=== PATIENT | male | born 1960 | race Caucasian/White ===

== ENCOUNTER 2016-06-21 08:30 | Inpatient (IN) | payer SELFPAY ==
[2016-06-21] VITALS (9 sets, daily range): BP systolic 107–141; BP diastolic 59–87; Ht 190.5 cm; Wt 81.8 kg
[~2016-06-21] VITALS: Ht 190.5 cm; Wt 81.8 kg
[~2016-06-21 08:30] MED LIST: BAYER CHEWABLE81 MG PO; BENZACLIN GEL 335 GM TP; CARBATROL 200200 MG PO; CELEXA40 MG PO; CENTRUM COMPLE1 EACH PO; COREG6.25 MG PO; EFFEXOR75 MG PO; HYDROCODONE-APA1 TAB PO; ISOSORBIDE MONO60 M1 PO; LASIX20 MG PO; LIPITOR80 MG PO; LOTENSIN5 MG; OLEPTRO ER150 MG PO; PEPCID20 MG PO; PLAVIX75 MG PO; RANEXA500 MG PO
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
--- NOTE | 2016-06-21 09:35 | NUR ---
TAKEN TO OR AT THIS TIME VIA BED. WILL MONITOR PT WHEN HE RETURNS TO THE FLOOR.
[2016-06-21 09:38] LABS: BASOPHILS 0.1 % (0.0-2.0); EOSINOPHILS 0.1 % (0-7); HEMATOCRIT 31.8 % (42.0-54.0); HEMOGLOBIN 10.7 g/dL (13.5-17.5); IMMATURE GRANULOCYTES 0.4 % (0-5); LYMPHOCYTES 9.7 % (15-50); MCH 30.5 pg (26.0-34.0); MCHC 33.6 g/dL (31.0-37.0); MCV 90.6 fL (80.0-100.0); MEAN PLATELET VOLUME 9.1 fL (7.4-10.4); MONOCYTES 12.3 % (2-11); NEUTROPHILS 77.4 % (40-80); PLATELET COUNT 179 10x3/uL (130-400); RBC 3.51 10x6/uL (4.20-6.10); RDW 14.1 % (11.5-14.5); WBC 14.2 10x3/uL (4.8-10.8)
[2016-06-21 09:59] LABS: CKMB 13.6 U/L (0.0-3.6); CREATINE KINASE 1575 UL (21-232); TROPONIN-I 0.036 ng/mL (0.000-0.060)
--- NOTE | 2016-06-21 10:24 | NUR ---
0930: PT SENT FAMILY HOME. SO NO FAMILY PRESENT
--- NOTE | 2016-06-21 11:30 | NUR ---
ANSARI CATHETER REMOVED IN PACU
--- NOTE | 2016-06-21 11:32 | NUR ---
REPORT RECEIVED FROM CLAUDIA MCINTOSH IN RECOVERY.
--- NOTE | 2016-06-21 11:35 | NUR ---
RECEIVED BACK TO ROOM 2240 AT THIS TIME. PT IS LETHARGIC, BUT RESPONDS TO VERBAL STIMULI. OXYGEN ON 2L VIA NC. VITAL SIGNS STABLE AND INITIATED PER POST PROCEDURE PROTOCOL. CALL LIGHT IN REACH, WILL CONTINUE TO MONITOR PT. IV TO LEFT HAND WITH NS INFUSING AT 100 ML/HR.
[2016-06-21] MEDS ORDERED: PROTONIX40 MG PO (12:33)
[2016-06-21] MEDS ORDERED: SINGULAIR10 MG PO (12:34)
[2016-06-21] MEDS ORDERED: FLUTICASONE PRO16 GM NASAL (12:34)
[2016-06-21] MEDS ORDERED: SPIRIVA RESPIMAT4 G1 INH (12:34)
[2016-06-21] MEDS ORDERED: TEGRETOL200 MG PO (12:35)
[2016-06-21] MEDS ORDERED: ATARAX 25 MG TA25 MG PO (12:36)
[2016-06-21] MEDS ORDERED: EFFEXOR75 MG PO (12:37)
[2016-06-21] MEDS ORDERED: TRAZODONE HCL150 MG PO (12:38)
[2016-06-21] MEDS ORDERED: ZANTAC150 MG PO (12:39)
--- NOTE | 2016-06-21 13:00 | NUR ---
AWAKENS UPON VERBAL STIMULI. ALERT AND ORIENTED. DRESSING TO RIGHT SCAPULA C/D/I. PROVIDED PT WITH COLA IN A CUP OF ICE. DENIES NEEDS AT THIS TIME. VITAL SIGNS REMAIN STABLE. WILL CONTINUE WITH PLAN OF CARE.
--- NOTE | 2016-06-21 13:45 | NUR ---
DR MARCELO IN SURGERY. SPOKE WITH ACCESS CLINICIAN NURSE AND TOLD HER TO LET HIM KNOW THAT MEDICATION LIST THAT HE PREVIOUSLY CONTINUED WAS NOT ACCURATE. NEW MEDICATION LIST IN COMPUTER FOR REVIEW.
[2016-06-21 15:31] LABS: CKMB 13.3 U/L (0.0-3.6); TROPONIN-I 0.033 ng/mL (0.000-0.060)
[2016-06-21 15:35] LABS: CREATINE KINASE 1520 UL (21-232)
--- NOTE | 2016-06-21 15:47 | NUR ---
Patient Name: PIO PARKER Admission Status: Elective Accout number: [id number] Admission Date: 06-21-2016 : 1960 Admission Diagnosis: Attending: PAULA Current LOS: 1 Anticipated DC Date: 06-25-2016 Planned Disposition: Home Primary Insurance: [place] [employer]IONS [place] Discharge Planning Comments: CM MET WITH PATIENT REGARDING D/C NEEDS AND PLANS. PATIENT STATED HE LIVES WITH HIS MOTHER KONRAD. PATIENT STATED THERE ARE NO STEPS OR STAIRS AT HIS HOME. PATIENT STATED HE WOULD NEED A CAB HOME. PATIENTS PCP IS DR. BLAS AND PHARMACY IS [facility]. PATIENT STATED HE HAS NOT HAD HOME HEALTH BEFORE AND DOES NOT WANT IT. CM WILL CONTINUE TO FOLLOW PATIENT WITH D/C NEEDS AND PLANS. PCP [facility] [place] [place] [phone] Staff [employer] Officer: Sharon Godinez Is the patient Alert and Oriented? Yes 0 * How many steps to enter\exit or inside your home? 0 0 * PCP DR. BLAS 0 * Pharmacy [facility] 0 * Preadmission Environment Home with Family 0 * ADLs Independent 0 * Equipment None 0 * List name and contact numbers for known caregivers / representatives who currently or will assist patient after discharge: [place] [place] [phone] 0 * Community resources currently utilized None 0 * Additional services required to return to the preadmission environment? Yes 0 * Can the patient safely return to the preadmission environment? Yes 0 * Has this patient been hospitalized within the prior 30 days at any hospital? No 0 Grand Total: 0
--- NOTE | 2016-06-21 17:40 | NUR ---
GIVEN PRN PERCOCET-10 AT THIS TIME FOR PAIN 02/09. DRESSING TO RIGHT SHOULDER C/D/I. PT IS ALERT AND ORIENTED AND DENIES THE NEED TO VOID AT THIS TIME. PROVIED WITH URINAL AND FRESH COLA. CALL LIGHT IN REACH, WILL CONTINUE WITH PLAN OF CARE.
--- NOTE | 2016-06-21 19:54 | NUR ---
PT IS A&OX4 SITTING UP IN BED WATCHING TV. PT REQUESTS PAIN MEDICATION "IF IT IS TIME." NURSE NOTIFIED. BED LOW. CL IN REACH.
[2016-06-21 21:40] LABS: CKMB 8.9 U/L (0.0-3.6); TROPONIN-I 0.021 ng/mL (0.000-0.060)
[2016-06-21 21:45] LABS: CREATINE KINASE 1411 UL (21-232)
[2016-06-22 00:36] VITALS: BP 125/48
[2016-06-22 04:34] VITALS: BP 114/66
[2016-06-22] MEDS ORDERED: PLAVIX75 MG PO (07:34)
--- NOTE | 2016-06-22 07:45 | NUR ---
PRN PERCOCET-10 ADMINISTERED FOR PAIN AT THIS TIME. PAIN 9/10 IN THE RIGHT SHOULDER.
[2016-06-22] MEDS ORDERED: PERCOCET 10/3251 TA1 PO (09:16)
[2016-06-22] MEDS ORDERED: CLEOCIN HCL150 MG PO (09:17)
[2016-06-22 09:30] VITALS: BP 129/51
--- NOTE | 2016-06-22 10:17 | NUR ---
SCHEDULED MEDICATIONS ADMINISTERED AT THIS TIME. DR MARCELO IN THE ROOM. EXISTING DRESSING REMOVED AT THIS TIME BY HIM AND NEW DRESSING APPLIED. PT WILL BE DISCHARGED HOME. SPOKE WITH PT'S SON AND HE SAID HE COULD PICK HIM UP LATER THIS AFTERNOON. EXPLAINED THIS TO PT AND HE VERBALIZED UNDERSTANDING.
--- NOTE | 2016-06-22 11:28 | NUR ---
SCHEDULED TORADOL ADMINISTERED AT THIS TIME. PROVIDED PT WITH SCRUBS FOR DISCHARGE. DENIES FURTHER NEEDS AT PRESENT TIME. WILL CONTINUE WITH PLAN OF CARE.
[2016-06-22 12:42] VITALS: BP 110/35
--- NOTE | 2016-06-22 14:20 | NUR ---
DRESSING TO LEFT BUTTOCK CHANGED AT THIS TIME. ASSISTED PT INTO SCRUB TOP AND BOTTOM WELL NON SKID SOCKS. TELEMETRY REMOVED AND RETURNED TO HEART MONITOR STATION. AWAITING PT'S SON'S ARRIVAL.
--- NOTE | 2016-06-22 15:06 | NUR ---
DISCHARGED HOME AT THIS TIME WITH SON VIA PRIVATE VEHICLE.
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
== END 2016-06-22 15:05 | disposition home or self-care (01) | DRG 517 ==
LOC: D.MS 08:30 → OBSVTIME 08:30 → D.MS 08:30
PROVIDERS: Internal Medicine Interventional Cardiology; ADMIT Surgery
PROC: 0PB50ZZ Excision of Right Scapula, Open Approach (ICD-10-PCS; principal; 2016-06-21 10:30)
DX: S42.101A Fracture of unspecified part of scapula, right shoulder, initial encounter for closed fracture (principal); S71.102A Unspecified open wound, left thigh, initial encounter; X95.9XXA Assault by unspecified firearm discharge, initial encounter; S02.2XXA Fracture of nasal bones, initial encounter for closed fracture; I25.10 Atherosclerotic heart disease of native coronary artery without angina pectoris; Z95.5 Presence of coronary angioplasty implant and graft; R07.89 Other chest pain; I10 Essential (primary) hypertension; F17.200 Nicotine dependence, unspecified, uncomplicated; E78.5 Hyperlipidemia, unspecified

== ENCOUNTER 2016-09-13 07:55 | Outpatient (CLI) | payer MEDICAID ==
[~2016-09-13] VITALS: Ht 190.5 cm; Wt 89.1 kg
--- NOTE | ~2016-09-13 | OP ---
PATIENT NAME: PIO PARKER MEDICAL RECORD: [id number] :60 LOCATION:D.CAT ADMISSION DATE: SURGEON: ADIN NUNN MD DATE OF OPERATION: 09/13/2016 PROCEDURES: 1. PTCA stent LAD. 2. Left heart catheterization. 3. Selective coronary angiography. 4. Left ventriculogram. PROCEDURE IN DETAIL: After informed consent was obtained and after detailed explanation of risks, benefits as well as alternative therapies, the patient elected to proceed with angiogram and angioplasty. The right femoral area was prepped and draped in normal sterile fashion. The right femoral artery was cannulated via modified Seldinger technique with a placement of 6-Palauan sheath. All catheters exchanged through this sheath. FINDINGS: The left ventriculogram was performed in the standard 30-degree RAMIREZ view reveals mild global hypokinesis throughout all segments. Overall ejection fraction 40%. SELECTIVE CORONARY ANGIOGRAPHY: 1. Left main showed no significant angiographic disease. 2. Left anterior descending has previously placed stent. This is widely patent with no significant restenosis; however, there is a relatively large diagonal that has a 70% stenosis in the proximal portion. 3. Left circumflex has mild irregularities, no flow-limiting stenosis. 4. The right coronary has previously placed stents, these are widely patent with no significant restenosis. No disease elsewise throughout the RCA or its branches. PERCUTANEOUS TRANSLUMINAL CORONARY ANGIOPLASTY STENT OF THE LEFT ANTERIOR DESCENDING: The stent used 2.5 x 12 mm Integrity. Result was 0% residual stenosis. OVERALL IMPRESSION: Successful percutaneous transluminal coronary angioplasty stent of the left anterior descending going from 70% initial stenosis to 0% residual. TRANSINT:[id number] Voice Confirmation ID: [id number] DOCUMENT ID: [id number] ADIN NUNN MD CC: [id number] DICTATION DATE: 09/13/16 1019 ENVIRONMENTAL HEALTH AND SAFETY INTERN: 09/13/16 194 DEP CLI 09/13/16 [facility] [address] [place] [address]
--- NOTE | ~2016-09-13 | HEMODYNAMI ---
PATIENT:PIO PARKER MEDICAL RECORD: [id number] : 60 LOCATION:[facility] ADMISSION DATE: 09/13/16 Generatedon:09/13/201610:21 Patient name: PIO PARKER Patient #: [id number] SSN: [id number] : 1960 Date of study: 09/13/2016 Page: Of Hemodynamic Procedure Report Patient Data Patient Demographics Procedure consent was obtained First Name: PIO Gender: Male Last Name: : 1960 Middle Initial: L Age: 56 year(s) Patient #: [id number] Race: SSN: [id number] Additional ID: [id number] Contact details Address: [address] [place] [address] State: [place] City: [place] Zip code: [address] Past Medical History Allergies Allergen Reaction Date Comments Reported Other allergy 02/17/2015 penicillins Penicillins 05/03/2015 Other allergy 09/13/2016 penicillin Admission Admission Data Admission Date: 09/13/2016 Admission Time: 7:55 Arrival Date: 09/13/2016 Arrival Time: 10:00 Admit Source: Other Insurance Payor: Medicaid Height (in.): 75 BSA: 2.18 (m2) Height (cm.): 190.5 BMI: 24.62 (kg/m2) Weight (lbs.): 197 Weight (kg.): 89.36 Lab Results Lab Result Date: 09/13/2016 Lab Result Time: 0:00 Biochemistry Name Units Result Min Max BUN mg/dl 21 --(----)-* 7 18 Creatinine mg/dl 0.9 --(-*--)-- 0.6 1.3 CBC Name Units Result Min Max Hemoglobin g/dl 10.6 *-(----)-- 13.5 17.5 Procedure Procedure Types Cath Procedure Diagnostic Procedure LHC LHC w/Coronaries PCI Procedure Coronary Stent Initial Miscellaneous Procedures Moderate Sedation up to 30 minutes Procedure Description Procedure Date Procedure Date: 09/13/2016 Procedure Start Time: 10:01 Procedure End Time: 10:15 Procedure Staff Name Function Angelo Norris MD Performing Physician Sarah Valdez RT Scrub Anmol Watt RN Nurse Millie Thompson RT Monitor Procedure Data Cath Procedure Fluoroscopy Diagnostic fluoroscopy Total fluoroscopy Time: 2.7 time: 2.7 min min Diagnostic fluoroscopy Total fluoroscopy dose: 892 dose: 892 mGy mGy Contrast Material Contrast Material Type Amount (ml) Isovue 370 79 Entry Location Entry Primary Successful Side Size Upsize Upsize Entry Closure Succes sful Closure Location (Fr) 1 (Fr) 2 (Fr) Remarks Device Remarks Femoral Right 5 Fr 6 Fr artery Short Estimated blood loss: 5 ml Diagnostic catheters Device Type Used For End Catheter Placement Cordis 5Fr Pigtail Multi-vessel Catheter (MP) Angiography Cordis 5Fr JL 4.0 Left Coronary Catheter (MP) Angiography Cordis 5Fr 3DRC Catheter Right Coronary (MP) Angiography Procedure Complications No complications Procedure Medications Medication Administration Route Dosage Oxygen NC 2 l/min Lidocaine 2% added to field 20 Heparin Flush Bag added to field 2 bags (1000units/500ml NS) 0.9% NaCl I.V. 100 ml/hr Versed I.V. 2 mg Fentanyl I.V. 100 mcg Versed I.V. 2 mg Fentanyl I.V. 100 mcg Heparin Bolus I.V. 4000 units Fentanyl I.V. 100 mcg Hemodynamics Rest BSA: 2.18 (m2) HGB: 10.6 (g/dl) O2 Consumption: Estimated: 252.17 (ml/min) O2 Co nsumption indexed: Estimated:115.67 (ml/min/m) Heart Rate: 63 (bpm) Pressure Samples Time Site Value (mmHg) Purpose Heart Use Rate(bpm) 10:04 LV 50/10,16 Snapshot 70 Snapshots Pre Cath Intra NCS Post Cath Vital Signs Time Heart Resp SPO2 NIBP Rhythm Pain Sedation Rate (ipm) (%) (mmHg) Status Level (bpm) 9:53:29 60 17 100 129/82(95) NSR 0 (11) 10(A) , No pain 9:57:40 69 15 97 125/83(94) NSR 0 (11) 10(A) , No pain 10:01:54 63 16 97 115/66(82) NSR 0 (11) 10(A) , No pain 10:06:06 68 15 93 111/65(86) NSR 0 (11) 9(A) , No pain 10:10:14 67 17 96 112/69(82) NSR 0 (11) 9(A) , No pain 10:14:26 66 17 97 106/60(74) NSR 0 (11) 9(A) , No pain 10:19:17 66 16 97 107/61(78) NSR 0 (11) 10(A) , No pain Medications Time Medication Route Dose Verified Delivered Reason Notes Effectiveness by by 9:53:03 Oxygen NC 2 Angelo Buffie used for l/min Jr Watt RN procedure 9:53:11 Lidocaine 2% added 20ml Angelo Angelo for local to vial Jr Norris MD anesthetic field 9:53:18 Heparin Flush added 2 Angelo Angelo used for Bag to bags Jr Norris MD procedure (1000units/500ml field NS) 9:53:30 0.9% NaCl I.V. 100 Angelo Corea Per physician ml/hr Jr Watt RN 10:01:49 Versed I.V. 2 mg Angelo Moscosoie for sedation Jr Watt RN 10:01:55 Fentanyl I.V. 100 Angelo Buffie for sedation mcg Jr Watt RN 10:04:55 Versed I.V. 2 mg Angelo Danisie for sedation Jr Watt RN 10:04:59 Fentanyl I.V. 100 nAgelo Corea for sedation mcg Jr Watt RN 10:08:29 Fentanyl I.V. 100 Angelo Corea for sedation mcg Jr Watt RN 10:09:01 Heparin Bolus I.V. 4000 Angelowilliam Moscosoie for verifi ed units Jr Watt RN anticoagulation with dr norris Procedure Log Time Note 9:35:35 Informed consent obtained and on chart 9:35:47 Admit Source: Other 9:36:11 Arrival Date: 09/13/2016 10:00:00 AM 9:36:16 Insurance Payor : Medicaid 9:37:00 Patient Height : 190.5 cm 9:37:11 Patient Weight : 89.36 kg 9:39:09 Diagnostic Cath Status : Elective 9:39:45 Anmol Watt RN sent for patient. Start room use. 9:39:46 Time tracking: Regular hours 9:39:52 Plan of Care:Hemodynamics will remain stable., Cardiac rhythm will remain stable., Comfort level will be maintained., Respiratory function will remain adequate., Patient/ family verbilizes understanding of procedure., Procedure tolerated without complication., Recovers from procedure without complications.. 9:52:21 Patient received from Pre/Post Procedure Room to [facility] Alert and oriented. Tansferred to table in Supine position. 9:52:22 Warm blankets applied, and og hugger turned on for patient comfort. 9:52:23 Correct patient and procedure confirmed by team. 9:52:24 ECG and BP/O2 sat monitors applied to patient. 9:52:25 Vital chart was started 9:52:27 Baseline sample Acquired. 9:52:33 Rhythm: sinus rhythm 9:52:34 Full Disclosure recording started 9:52:50 H&P Date Dictated: 09/10/2016 Within 30 days and on chart., H&P Addendum completed by physician on day of procedure. (MUST COMPLETE FOR ALL OUTPATIENTS). 9:52:52 Pre-procedure instructions explained to patient. 9:52:52 Pre-op teaching completed and patient verbalized understanding. 9:52:53 Family in waiting room. 9:52:54 Patient NPO since Midnight. 9:53:03 Oxygen 2 l/min NC was administered by Anmol Watt RN; used for procedure; 9:53:07 Patient allergic to Other allergypenicillin 9:53:11 Lidocaine 2% 20ml vial added to field was administered by Angelo Norris MD; for local anesthetic; 9:53:18 Heparin Flush Bag (1000units/500ml NS) 2 bags added to field was administered by Angelo Norris MD; used for procedure; 9:53:30 0.9% NaCl 100 ml/hr I.V. was administered by Anmol Watt RN; Per physician; 9:55:39 Is the patient allergic to Iodine/contrast media? No. 9:55:40 Was the patient premedicated? No 9:55:41 Is patient on blood thinner?Yes 9:55:44 ACC The patient was administered the following blood thiners within the last 24 hours: ACCPlavix 9:56:10 Patient diabetic? No. 9:56:13 Previous problem with sedation/anesthesia? No ? 9:56:14 Snore? No 9:56:15 Sleep apnea? No 9:56:16 Deviated septum? No 9:56:17 Opens mouth fully? Yes 9:56:18 Sticks out tongue? Yes 9:56:20 Airway obstruction? No ? 9:56:22 Dentures? No ? 9:56:26 Pre procedure: right dorsailis pedis pulse 1+ Palpable, but thready & weak; easily obliterated 9:56:28 Patient pain scale 0/10 ?. 9:56:43 IV patent on arrival in left forearm with 0.9% NaCl at [facility]. 9:57:42 --------ALL STOP TIME OUT------ 10:00:35 Lab results completed and on chart. 10:00:39 Right groin area was prepped with chlora-prep and draped in sterile fashion 10:00:40 Alarms reviewed by R. N. 10:00:40 Sharps counted by scrub and verified by R.N. 10:00:42 Physician arrived 10:00:43 Final Timeout: patient, procedure, and site verified with staff and physician. All members of the team are in agreement. 10:00:45 Right groin site verified by team. 10:00:48 Physical assessment completed. ASA score P 2 - A patient with mild systemic disease as per Angelo Norris MD. 10:00:52 Sedation plan: IV Moderate Sedation Versed, Fentanyl 10:01:18 Procedure started. 10:01:22 Local anesthetic to right femoral artery with Lidocaine 2% by Angelo Norris MD.INITIAL ACCESS ONLY 10:01:29 A 5 Fr sheath was inserted into the Right Femoral artery 10:01:40 Use device set Femoral Dx 10:01:41 Acist Syringe opened to sterile field. 10:01:41 Bag Decanter opened to sterile field. 10:01:42 Medline Cath Pack opened to sterile field. 10:01:42 Terumo 5Fr [place] Sheath opened to sterile field. 10:01:43 St Randal 260cm J .035 wire opened to sterile field. 10:01:44 Acist Hand Control opened to sterile field. 10:01:44 Acist Manifold opened to sterile field. 10:01:45 Diagnostic Infinity 5Fr Multipack catheter opened to sterile field. 10:01:45 Tegaderm 4 x 4 opened to sterile field. 10::49 Versed 2 mg I.V. was administered by Anmol Watt RN; for sedation; 10::55 Fentanyl 100 mcg I.V. was administered by Anmol Watt RN; for sedation; :: Lab Result : Hemoglobin 10.6 g/dl 10:: Lab Result : Creatinine 0.9 mg/dl 10:: Lab Result : BUN 21 mg/dl 10:04:05 A Cordis 5Fr Pigtail Catheter (MP) was advanced over the wire and used for Multi-vessel Angiography. 10:04:29 LV hemodynamics recorded. 10:04:30 LV gram done using RAMIREZ 10::32 Injector settings: Ml/sec: 5, Volume: 15, 10::37 EF : 40 % 10:04:38 Catheter removed. 10:04:44 A Cordis 5Fr JL 4.0 Catheter (MP) was advanced over the wire and used for Left Coronary Angiography. 10::55 Versed 2 mg I.V. was administered by Anmol Watt RN; for sedation; 10::59 Fentanyl 100 mcg I.V. was administered by Anmol Watt RN; for sedation; 10:05:24 LCA angiography performed. 10:05:26 Injector settings: Ml/sec: 3, Volume: 6, 10:06:43 Terumo 6Fr [place] Sheath opened to sterile field. 10:06:44 Merit BasixCompak Inflation Kit opened to sterile field. 10:06:44 Miller Whisper J 300cm 0.014 guide wire opened to sterile field. 10:06:57 Catheter removed. 10:07:01 A Cordis 5Fr 3DRC Catheter (MP) was advanced over the wire and used for Right Coronary Angiography. 10:07:37 RCA angiography performed. 10:07:40 Injector settings: Ml/sec: 3, Volume: 6, 10:07:44 Catheter removed. 10:07:44 Proceeding to intervention. 10:07:55 Cordis 6FR XBLAD 3.5 guide catheter opened to sterile field. 10:08:03 Sheath upsized to a 6 Fr Short. 10:08:24 6 Fr xblad 3.5 guide catheter was inserted over the wire 10:08:29 Fentanyl 100 mcg I.V. was administered by Anmol Watt RN; for sedation; 10:09:01 Heparin Bolus 4000 units I.V. was administered by Anmol Watt RN; for anticoagulation; verified with dr norris 10:09:15 whisper] wire advanced. 10:10:37 Wire advanced across lesion. 10::29 Inflation Number: 1 A Medtronic Integrity 2.5 X 12 stent was prepped and advanced across the 1st Diag. The stent was deployed at 13 AGUEDA for 0:10 (min:sec). 10:11:32 Stent catheter was removed intact over wire. 10:11:32 Wire removed. 10:11:33 Guide catheter removed. 10:13:33 Cordis 6Fr Exoseal opened to sterile field. 10:14:02 Procedure ended.(Physican Out) 10:14:16 Fluoroscopy time 02.70 minutes. 10:14:21 Flurop Dose total: 892 10:14:21 Fluoroscopy dose: 892 mGy 10:14:34 Contrast amount:Isovue 370 79ml. 10:14:35 Sharps counted by scrub and verified by R.N. 10:14:36 Insertion/operative site no bleeding no hematoma. 10:14:39 Post-op/insertion site Right Femoral artery dressed using a 4 x 4 and Tegaderm. 10:14:42 Post right femoral artery:stable 10:14:43 Post Procedure Pulses reassessed and unchanged 10:14:46 Post procedure rhythm: unchanged. 10:14:48 Estimated blood loss: 5 ml 10:14:49 Post procedure instruction explained to patient.Patient verbalizes understanding. 10:14:49 Patient needs reinforcement of post procedure teaching. 10:15:22 Procedure type changed to Cath procedure, Diagnostic procedure, LHC, LHC w/Coronaries, PCI procedure, Coronary Stent Initial, Miscellaneous Procedures, Moderate Sedation up to 30 minutes 10:15:23 Procedure and supply charges have been captured, reviewed, submitted and are correct. 10:15:27 Procedure Complication : No complications 10:15:29 Vital chart was stopped 10::29 See physician's report for complete and final results. 10:15:33 Report given to Pre/Post Procedure Room. 10:15:37 Patient transfered to Pre/Post Procedure Room with Stretcher. 10:15:43 Procedure ended. 10:15:43 Full Disclosure recording stopped 10:16:06 End room use (Document Last) Intervention Summary Intervention Notes Time ActionType Lesion and Equipment Action# Pressure Duration Attributes Used 10:11:29 Place stent 1st Diag Medtronic 1 13 00:10 Integrity 2.5 X 12 stent Device Usage Item Name Manufacture Quantity Catalog Hospital Part Current Minimal L ot# / Number Charge Number Stock Stock Serial# Code Acist Acist 1 38675 133538 645617 561055 20 Syringe Medical Systems Inc Bag Microtek 1 2002S 822883 87426 778960 5 Decanter Medical Inc. Medline Cardinal 1 [id number] 633066 34153 672843 5 Cath Pack Health Terumo 5Fr Terumo 1 GNL873 692401 595729 554370 [address] Randal 1 871074 019174 317137 070344 30 260cm J .035 wire Acist Hand Acist 1 35738 538889 548181 966059 5 Relux Medical Systems Inc Acist Acist 1 59379 470792 811298 480590 5 [place] Diagnostic Cardinal 1 [id number] 776616 84677 218054 30 Invested.inity Health 5Fr Multipack catheter Tegaderm 4 3M 1 1626W 872927 662477 222455 5 x 4 Cordis 5Fr Cardinal 1 182214 5 Pigtail Health Catheter (MP) Cordis 5Fr Cardinal 1 104712 5 JL 4.0 Health Catheter (MP) Terumo 6Fr Terumo 1 SEZ228 281601 740917 786722 40 [place] Sheath Merit Merit 1 TT8791 059109 993433 748385 15 BasixCompak Medical Inflation Kit Miller Miller 1 [id number] 246662 338703 978889 5 Whisper J Vascular 300cm 0.014 guide wire Cordis 5Fr Cardinal 1 291148 5 3DRC Health Catheter (MP) Cordis 6FR Cardinal 1 [id number] 320858 586870 486855 10 XBLAD 3.5 Health guide catheter Medtronic Medtronic 1 [id number] 044055 634207 238745 3 0 [id number] Integrity 2.5 X 12 stent Cordis 6Fr Cardinal 1 EX600 163869 573247 717474 10 Biomedical Innovation Signature Audit [place] Stage Time Signature Unsigned Intra-Procedure 09/13/2016 Millie Thompson 10:21:09 AM RT(R) Signatures Monitor : Millie Thompson RT Signature : Date : Time : [facility] [address] [place] [address]
[~2016-09-13 07:55] MED LIST changes: +ATARAX 25 MG TA25 MG PO; +CLEOCIN HCL150 MG PO; +FLUTICASONE PRO16 GM NASAL; +PERCOCET 10/3251 TA1 PO; +PROTONIX40 MG PO; +SINGULAIR10 MG PO; +SPIRIVA RESPIMAT4 G1 INH; +TEGRETOL200 MG PO; +TRAZODONE HCL150 MG PO; +ZANTAC150 MG PO
[2016-09-13 08:27] VITALS: BP 107/70; Ht 190.5 cm; Wt 89.1 kg
[2016-09-13] MEDS ORDERED: ISOSORBIDE MONO60 M1 PO (08:41)
[2016-09-13] MEDS ORDERED: KLONOPIN1 MG PO (08:42)
[2016-09-13 08:45] LABS: BASOPHILS 0.6 % (0.0-2.0); EOSINOPHILS 3.3 % (0-7); HEMATOCRIT 33.4 % (42.0-54.0); HEMOGLOBIN 10.6 g/dL (13.5-17.5); LYMPHOCYTES 31.3 % (15-50); MCH 24.7 pg (26.0-34.0); MCHC 31.7 g/dL (31.0-37.0); MCV 77.7 fL (80.0-100.0); MEAN PLATELET VOLUME 9.4 fL (7.4-10.4); MONOCYTES 7.5 % (2-11); NEUTROPHILS 57.3 % (40-80); WBC 7.1 10x3/uL (4.8-10.8)
[2016-09-13] MEDS ORDERED: BUPROPION XL150 MG PO (08:45)
[2016-09-13] MEDS ORDERED: RANEXA500 MG PO (08:46)
[2016-09-13] MEDS ORDERED: COREG6.25 MG PO (08:46)
[2016-09-13] MEDS ORDERED: DEXILANT60 MG PO (08:47)
[2016-09-13] MEDS ORDERED: LOTENSIN5 MG PO (08:48)
[2016-09-13] MEDS ORDERED: LIPITOR80 MG PO (08:48)
[2016-09-13 08:49] LABS: PLATELET COUNT 236 10x3/uL (130-400)
[2016-09-13] MEDS ORDERED: PLAVIX75 MG PO (08:49)
[2016-09-13] MEDS ORDERED: SPIRIVA RESPIMAT4 G1 INH (08:49)
[2016-09-13] MEDS ORDERED: VENTOLIN HFA18 GM INH (08:50)
[2016-09-13] MEDS ORDERED: NITROSTAT0.4 MG SL (08:50)
[2016-09-13 08:56] LABS: CALC OSMOLALITY 280 mosm/kg (275-300); CALCIUM 8.7 mg/dL (8.5-10.1); CARBON DIOXIDE 23.2 mmol/L (21.0-32.0); CHLORIDE - SERUM 105 mmol/L (98-107); CREATININE - SERUM 0.9 mg/dL (0.6-1.3); GLUCOSE 98 mg/dL (74-106); POTASSIUM - SERUM 4.2 mmol/L (3.5-5.1); SODIUM 139 mmol/L (136-145); UREA NITROGEN 21 mg/dL (7-18); eGFR NON AFRICAN AMERICAN > 90 mL/min (90-120)
--- NOTE | 2016-09-13 11:03 | NUR ---
1045-RIGHT GROIN-CDI, NO HEMATOMA OR BLEEDING NOTED, SOFT TO TOUCH, RESTING WITH FAMILY AT SIDE.
--- NOTE | 2016-09-13 12:51 | NUR ---
1230 PT DENIES ANY C/O. DRESSING TO RIGHT GROIN IS CDI, NO BLEEDING OR HEMATOMA NOTED. PT HAS TOLERATED SANDWICH TRAY, REQUESTED ICE CREAM AND THIS SERVED. FRIEND AT BEDSIDE, CALL LIGHT IN REACH
--- NOTE | 2016-09-13 14:24 | NUR ---
IV D'C WITH CATH TIP INTACT, WRITTEN AND VERBAL INSTRUCTIONS GIVEN TO PT AND . UP TO REST ROOM- VOID
== END 2016-09-13 14:25 | disposition home or self-care (01) ==
LOC: D.CATH 07:55
PROVIDERS: Internal Medicine Interventional Cardiology
DX: I25.119 Atherosclerotic heart disease of native coronary artery with unspecified angina pectoris (principal); I10 Essential (primary) hypertension; F17.200 Nicotine dependence, unspecified, uncomplicated; E78.5 Hyperlipidemia, unspecified

== ENCOUNTER → 2017-01-17 08:16 | Outpatient (CLI) | payer MEDICAID ==
[2016-09-13 08:27] VITALS: BMI 24.5
[~2017-01-17 08:16] MED LIST changes: +BUPROPION XL150 MG PO; +DEXILANT60 MG PO; +KLONOPIN1 MG PO; +LOTENSIN5 MG PO; +NITROSTAT0.4 MG SL; +VENTOLIN HFA18 GM INH
== END | disposition home or self-care (01) ==
LOC: D.MRI 01-16 08:30
DX: L98.9 Disorder of the skin and subcutaneous tissue, unspecified (principal)

== ENCOUNTER 2017-07-21 11:56 | Observation (INO) | payer MEDICAID ==
[~2017-07-21] VITALS: Ht 190.5 cm; Wt 76.1 kg
--- NOTE | ~2017-07-21 | DS ---
PATIENT:PIO PARKER :60 MEDICAL RECORD: [id number] DISCHARGE SUMMARY ADMISSION DATE: 07/21/17 DISCHARGE DATE: 07/23/17 DISCHARGE DIAGNOSES: 1. Unstable angina. 2. Coronary artery disease. 3. Hypertension. 4. Hyperlipidemia. HOSPITAL COURSE: Mr. Parker presents with unstable anginal symptomatology, found to have 2-vessel disease of the RCA and LAD diagonal and underwent successful PTCA stent of both territories. No further angina. Discharged home to continue aspirin and Plavix. Will follow up with [facility] in 1 month. TRANSINT:[id number] Voice Confirmation ID: [id number] DOCUMENT ID: [id number] ADIN NUNN MD at 1148 CC: [id number] DICTATION DATE: 07/23/17 1143 COMPENSATION AND BENEFITS MANAGER: 07/23/17 1208 DIS IN 07/23/[address] [address]
--- NOTE | ~2017-07-21 | HP ---
PATIENT: PIO PARKER MEDICAL RECORD: [id number] ACCOUNT: [id number] LOCATION:[address] : 60 ADMISSION DATE: 07/21/17 HISTORY AND PHYSICAL EXAMINATION DIAGNOSES: 1. Unstable angina. 2. Coronary artery disease. 3. Previous multivessel percutaneous transluminal coronary angioplasty stent. 4. Chronic obstructive pulmonary disease. 5. Smoking history. 6. Hypertension. 7. Hyperlipidemia. HISTORY OF PRESENT ILLNESS: Mr. Parker presents with unstable angina. Last cardiac intervention was approximately a year ago. His chest pain has been increasing for the past 2 months, just like that of his previous angina. PHYSICAL EXAMINATION: GENERAL APPEARANCE: Well-nourished, well-developed, appears stated age. Level of distress, comfortable. PSYCHIATRIC: Mental status, alert, normal affect. Orientation, oriented to time, place and person. EYES: Lids and conjunctiva, noninjected. No discharge, no pallor. ENT: Lips, teeth, gums, normal dentition. Oropharynx, no cyanosis, no pallor. NECK: Carotid arteries, bilateral normal upstroke, no bruits, no thrills. JUGULAR VEINS: No jugular venous pressure or distention. CERVICAL LYMPH NODES: Nontender, nonenlarged. THYROID: Not enlarged. Nontender. No nodules. LUNGS: Respiratory effort, unlabored. CHEST: Normal curvature. No thoracic deformity. No chest wall tenderness. Percussion, resonant. Auscultation, clear. No wheezes, no rales, no rhonchi. CARDIOVASCULAR: Precordial exam, nondisplaced. No heaves or pericardial thrills. Rate and rhythm, regular. Heart sounds, normal S1, normal S2. No S3, no gallop, no rub. Systolic murmur, not heard. Diastolic murmur, not heard. EXTREMITIES: No cyanosis, no edema. Peripheral pulses, full and equal in all extremities, except as noted. No bruits appreciated. ABDOMEN: Soft, nondistended. Normal aorta. No bruit. Nontender. No masses. Liver, nontender, no hepatomegaly. Spleen, nontender, no splenomegaly. MUSCULOSKELETAL: No joint tenderness. No joint swelling. No erythema. NEUROLOGICAL: Normal gait, normal strength, normal tone. SKIN: Warm and dry. REVIEW OF SYSTEMS: The patient reports easy bruising but reports no swollen glands. The patient reports no fever, no night sweats, no significant weight gain, no significant weight loss. No significant exercise tolerance. The patient reports no dry eyes, no irritation, no vision change. Patient reports no difficulty hearing and no ear pain. Patient reports no frequent nose bleeds or nose and sinus problems. Patient reports on arm pain on exertion. No shortness of breath while lying down. No history of heart murmur. Patient reports no cough, no wheezing or coughing up blood. Patient reports no abdominal pain, no vomiting. Normal appetite. No diarrhea and not vomiting blood. No nausea and no constipation. Patient reports no incontinence. No difficulty urinating. No hematuria. No increased frequency. Patient reports no muscle aches. No weakness, no arthralgias, no back pain. No swelling of the HISTORY AND PHYSICAL [id number] RECOVERY MANAGERPIO. Patient reports no abnormal mole, no jaundice, no rashes. Reports no loss of consciousness. No weakness and no numbness. No seizures, dizziness, or headaches. The patient reports no depression, no sleep disturbance, feeling safe in a relationship and no alcohol abuse. Patient reports on fatigue. Reports no runny nose or sinus pressure. No itching, no hives, and no frequent sneezing. OVERALL IMPRESSION: Unstable angina. Most likely, he has recurrent hemodynamically significant coronary artery disease. We will reload with Plavix, proceed with coronary angiography in the a.m. Further care depends upon findings of the angiography. TRANSINT:[id number] Voice Confirmation ID: [id number] DOCUMENT ID: [id number] ADIN NUNN MD at 1148 CC: [id number] DICTATION DATE: 07/21/17 1645 ROADABILITY MACHINE OPERATOR: 07/21/17 1712 DIS IN 07/23/17 [facility] [address] [place] [address]
--- NOTE | ~2017-07-21 | OP ---
PATIENT NAME: PIO PARKER MEDICAL RECORD: [id number] :60 LOCATION:D.M2 D.2137 ADMISSION DATE:07/21/17 SURGEON: ADIN NUNN MD DATE OF OPERATION: 07/23/2017 PROCEDURES: 1. PTCA stent to LAD diagonal. 2. Selective coronary angiography. INDICATION: Angina and coronary artery disease. PROCEDURE IN DETAIL: After informed consent was obtained and after a detailed explanation of the risks, benefits as well as alternative therapies, the patient elected to proceed with angiogram and angioplasty. The right femoral area was prepped and draped in normal sterile fashion. The right femoral artery was cannulated via modified Seldinger technique with placement of 6-Tuvaluan sheath. All catheters exchanged through this sheath. FINDINGS: The left anterior descending diagonal has 80% stenosis in the proximal aspect of it. This was addressed with a 2.5 x 18 mm [place]. Result was 0% residual stenosis. OVERALL IMPRESSION: Successful percutaneous transluminal coronary angioplasty stent of the left anterior descending diagonal going from 80% initial stenosis to 0% residual. TRANSINT:[id number] Voice Confirmation ID: [id number] DOCUMENT ID: [id number] ADIN NUNN MD at 1148 CC: [id number] DICTATION DATE: 07/23/17 1143 PLAYER DEVELOPMENT MANAGER: 07/23/17 1206 DIS IN 07/23/17 [id number] [place] [address]
--- NOTE | ~2017-07-21 | OP ---
PATIENT NAME: PIO PARKER MEDICAL RECORD: [id number] :60 LOCATION:D.M2 D.2137 ADMISSION DATE:07/21/17 SURGEON: ADIN NUNN MD DATE OF OPERATION: 07/22/2017 PROCEDURES: 1. PTCA RCA. 2. Intravascular ultrasound. 3. Left heart catheterization. 4. Selective coronary angiography. 5. Left ventriculogram. INDICATION: Angina and coronary artery disease. PROCEDURE IN DETAIL: After informed consent was obtained and after detailed explanation of risks, benefits as well as alternative therapies, the patient elected to proceed with angiogram and angioplasty. The right femoral area was prepped and draped in normal sterile fashion. Right femoral artery was cannulated via modified Seldinger technique with placement of 6-Luxembourgish sheath. All catheters exchanged through this sheath. FINDINGS: The left ventriculogram was performed in standard 30-degree RAMIREZ view, reveals global hypokinesis, ejection fraction 40%. SELECTIVE CORONARY ANGIOGRAPHY: 1. Left main is with no significant angiographic disease. 2. Left anterior descending has previously placed stents in the LAD and LAD diagonal. The diagonal has greater than 70% in-stent restenosis. LAD itself is devoid of significant restenosis and devoid of disease elsewise. 3. The left circumflex has mild irregularities, but no flow-limiting stenosis. 4. Right coronary has a greater than 70% area of stenosis in the mid vessel that is in-stent restenosis from a previously placed stent. PTCA of the in-stent restenosis of the RCA. The balloon used was 3.0 x 15 mm taken to 21 atmospheres. Result was 0% residual stenosis. OVERALL IMPRESSION: Successful PTCA high pressure for in-stent restenosis of the right coronary artery going from greater than 70% initial stenosis to 0% residual stenosis. TRANSINT:[id number] Voice Confirmation ID: [id number] DOCUMENT ID: [id number] ADIN NUNN MD at 1148 CC: [id number] DICTATION DATE: 07/22/17 1240 DIRECTOR LEARNING AND DEVELOPMENT: 07/22/17 1301 DIS IN 07/23/17 [place] [address]
--- NOTE | ~2017-07-21 | HEMODYNAMI ---
PATIENT:PIO PARKER MEDICAL RECORD: [id number] : 60 LOC[id number] ADMISSION DATE: 07/21/17 Generatedon:07/23/201711:45 Patient name: PIO PARKER Patient #: [id number] SSN: [id number] : 1960 Date of study: 07/23/2017 Page: Of Hemodynamic Procedure Report Patient Data Patient Demographics Procedure consent was obtained First Name: PIO Gender: Male Last Name: : 1960 [facility] Initial: L Age: 57 year(s) Patient #: [id number] Race: SSN: [id number] Additional ID: [id number] Contact details [address]: [address] [place] [address] State: [place] City: [place] Zip code: [address] Past Medical History Allergies Allergen Reaction Date Comments Reported Other allergy 02/17/2015 penicillins Penicillins 05/03/2015 Other allergy 09/13/2016 penicillin Other allergy 07/22/2017 Penicillin Admission Admission Data Admission Date: 07/21/2017 Admission Time: 14:28 Arrival Date: 07/21/2017 Arrival Time: 14:28 Admit Source: Other Insurance Payor: Medicaid Room #: D.[id number] Height (in.): 75 BSA: 2.07 (m2) Height (cm.): 190.5 BMI: 21.88 (kg/m2) Weight (lbs.): 175.05 Weight (kg.): 79.4 Lab Results Lab Result Date: 07/22/2017 Lab Result Time: 0:00 Biochemistry Name Units Result Min Max BUN mg/dl 15 --(--*-)-- 7 18 Creatinine mg/dl 0.7 --(*---)-- 0.6 1.3 CBC Name Units Result Min Max Hemoglobin g/dl 13.5 --(*---)-- 13.5 17.5 Procedure Procedure Types Cath Procedure PCI Procedure Coronary Stent Coronary Stent Initial Procedure Description Procedure Date Procedure Date: 07/23/2017 Procedure Start Time: 11:31 Procedure End Time: 11:43 Procedure Staff Name Function Angelo Norris MD Performing Physician Sarah Valdez RT Monitor Cat Rondon RT Scrub Shawn Kamara RN Nurse Procedure Data Cath Procedure Fluoroscopy Diagnostic fluoroscopy Total fluoroscopy Time: 2.8 time: 2.8 min min Diagnostic fluoroscopy Total fluoroscopy dose: 326 dose: 326 mGy mGy Contrast Material Contrast Material Type Amount (ml) Isovue 300 47 Entry Location Entry Primary Successful Side Size Upsize Upsize Entry Closure Succes sful Closure Location (Fr) 1 (Fr) 2 (Fr) Remarks Device Remarks Femoral Right 6 Fr Exoseal artery Short Estimated blood loss: 10 ml Procedure Complications No complications Procedure Medications Medication Administration Route Dosage 0.9% NaCl I.V. 100 ml/hr Oxygen NC 2 l/min Versed I.V. 2 mg Fentanyl 100 mcg Heparin Flush Bag added to field 2 bags (1000units/500ml NS) Lidocaine 2% added to field 20 Heparin Bolus I.V. 4000 units Plavix P.O. 75 mg Hemodynamics Rest BSA: 2.07 (m2) HGB: 13.5 (g/dl) O2 Consumption: Estimated: 246.68 (ml/min) O2 Co nsumption indexed: Estimated:119.17 (ml/min/m) Heart Rate: 73 (bpm) Snapshots Pre Cath Intra NCS Post Cath Vital Signs Time Heart Resp SPO2 etCO2 NIBP Rhythm Pain Sedation Rate (ipm) (%) (mmHg) (mmHg) Status Level (bpm) 11:33:43 72 10 98 0 109/67(94) NSR 0 (11) 10(A) , No pain 11:38:22 69 9 0 100/63(76) NSR 0 (11) 10(A) , No pain 11:42:58 67 9 95 0 101/63(78) NSR 0 (11) 10(A) , No pain Medications Time Medication Route Dose Verified Delivered Reason Notes Effectiveness by by 11:30:07 Lidocaine 2% added 20ml Shawn Shawn for local to vial Anh Kamara anesthetic field TAYLOR RN 11:30:25 0.9% NaCl I.V. 100 Shawn Shawn Per physician ml/hr Anh Kamara RN RN 11:30:35 Oxygen NC 2 Shawn Shawn Per physician l/min Lorigan Lorigan RN RN 11:30:53 Heparin Flush added 2 Shawn Shawn used for Bag to bags Anh Anh procedure (1000units/500ml field RN RN NS) 11:34:12 Heparin Bolus I.V. 4000 Shawn Shawn for units Anh Anh anticoagulation RN RN 11:34:31 Versed I.V. 2 mg Shawn Shawn for sedation Anh Kamara RN RN 11:35:25 Fentanyl 100 Shawn Shawn for sedation mcg Anh Kamara RN RN 11:44:42 Plavix P.O. 75 mg Shawn Shawn for Anh Navarrosegundo antiplatelet RN RN therapy Procedure Log Time Note 11:03:11 Patient Height : 75 inches 11:03:11 Patient Weight : 175.05 lbs 11:03:25 Time tracking: Regular hours 11:03:30 Plan of Care:Hemodynamics will remain stable., Cardiac rhythm will remain stable., Comfort level will be maintained., Respiratory function will remain adequate., Patient/ family verbilizes understanding of procedure., Procedure tolerated without complication., Recovers from procedure without complications.. 11:03:31 Signed procedure consent form obtained from patient. 11:03:34 Shawn Kamara RN sent for patient. Start room use. 11:04:34 H&P Date Dictated: 07/22/2017 Within 30 days and on chart.. 11:10:20 Sedation plan: IV Moderate Sedation Medication:Versed, Fentanyl 11:28:09 Patient received from Med II to CCL 1 Alert and oriented. Tansferred to table in Supine position. 11:28:11 Warm blankets applied, and og hugger turned on for patient comfort. 11:28:11 Correct patient and procedure confirmed by team. 11:28:12 ECG and BP/O2 sat monitors applied to patient. 11:28:13 Vital chart was started 11::15 Baseline sample Acquired. 11::20 Rhythm: sinus rhythm 11::22 Full Disclosure recording started ::25 Family unavailable. 11::28 Patient NPO since Midnight. 11:28:35 Is the patient allergic to Iodine/contrast media? No. 11:28:36 Was the patient premedicated? Yes 11::38 Is patient on blood thinner?Yes 11::43 ACC The patient was administered the following blood thiners within the last 24 hours: ACCPlavix 11:28:48 Patient diabetic? No. 11:28:56 Snore? Yes 11:28:59 Sleep apnea? No 11:29:08 Patient pain scale 0/10 ?. 11:29:15 IV patent on arrival in left hand with 0.9% NaCl at O. 11:29:24 Right groin area was prepped with chlora-prep and draped in sterile fashion 11:: Alarms reviewed by R. N. 11::28 Sharps counted by scrub and verified by R.N. 11:29:31 Physician paged 11::32 Physician arrived 11::32 --------ALL STOP TIME OUT------ 11::34 Final Timeout: patient, procedure, and site verified with staff and physician. All members of the team are in agreement. 11:29:35 Right groin site verified by team. 11:29:41 Physical assessment completed. ASA score P 2 - A patient with mild systemic disease as per Angelo Norris MD. 11:29:55 Use device set Femoral Dx 11:30:07 Lidocaine 2% 20ml vial added to field was administered by Shawn Kamara RN; for local anesthetic; 11:30:07 ACIST Syringe (52646) opened to sterile field. 11:30:07 Bag Decanter (2002) opened to sterile field. 11:30:08 Medline Cath Pack ([id number]) opened to sterile field. 11:30:16 SHEATH 6FR Clever (KTY727) opened to sterile field. 11:30:17 DIAGNOSTIC WIRE .035 260cm J wire ([id number]) opened to sterile field. 11:30:20 ACIST Hand Control (53414) opened to sterile field. 11:30:20 ACIST Manifold (42163) opened to sterile field. 11:30:23 Tegaderm 4 x 4 (1626W) opened to sterile field. 11:30:24 PERCUTANEOUS ENTRY 19GA needle opened to sterile field. 11:30:25 0.9% NaCl 100 ml/hr I.V. was administered by Shawn Kamara RN; Per physician; 11:30:35 Oxygen 2 l/min NC was administered by Shawn Lorigan RN; Per physician; 11:30:53 Heparin Flush Bag (1000units/500ml NS) 2 bags added to field was administered by Shawn Kamara RN; used for procedure; ::54 Procedure started. 11:31:21 Local anesthetic to right femoral artery with Lidocaine 2% by Angelo Norris MD.INITIAL ACCESS ONLY 11:32:33 A 6 Fr Short sheath was inserted into the Right Femoral artery 11:34:12 Heparin Bolus 4000 units I.V. was administered by Shawn Kamara RN; for anticoagulation; :34:21 GUIDE 6FR XBLAD 3.5 catheter ([id number]) opened to sterile field. 11:34:22 CHOICE PT Extra Support 182cm wire ([id number]) opened to sterile field. 11:34:23 INFLATOR Merit BasixCompak (WA5651) opened to sterile field. 11:34:31 Versed 2 mg I.V. was administered by Shawn Kamara RN; for sedation; 11:34:39 6 Fr 3.5 XBLAD guide catheter was inserted over the wire ::54 ex support choice wire advanced. 11:34:55 Wire advanced across lesion. 11:35:25 Fentanyl 100 mcg was administered by Shawn Kamara RN; for sedation; 11:36:30 Inflation number: 1 A EUPHORA 2.5 x 15 Balloon ([id number]) was prepped and advanced across the 1st Diag, then inflated to 13 AGUEDA for 0:07 (min:sec). 11:36:41 Inflation number: 2 The EUPHORA 2.5 x 15 Balloon ([id number]) was reinflated across the 1st Diag, to 17 AGUEDA for 0:05 (min:sec). 11:37:01 Balloon removed over the wire. 11:38:20 Inflation Number: 3 A LYNETTE RX 2.5 x 18 stent ([id number]) was prepped and advanced across the 1st Diag. The stent was deployed at 17 AGUEDA for 0:10 (min:sec). 11:40:14 EXOSEAL 6Fr (EX600) opened to sterile field. 11:40:20 Wire removed. 11:40:21 Guide catheter removed. 11:40:53 Sheath removed intact; hemostasis achieved with Exoseal to the Right Femoral artery. 11:40:55 Procedure ended.(Physican Out) 11:41:17 Fluoroscopy time 02.80 minutes. 11:41:22 Flurop Dose total: 326 11:41:22 Fluoroscopy dose: 326 mGy 11:41:26 Contrast amount:Isovue 300 47ml. 11:41:28 Sharps counted by scrub and verified by R.N. 11:41:38 Insertion/operative site no bleeding no hematoma. 11:41:41 Post Procedure Pulses reassessed and unchanged 11:41:45 Post-procedure physical assessment completed. ASA score P 2 - A patient with mild systemic disease as per Angelo Norris MD. 11:41:49 Post procedure rhythm: unchanged. 11:41:53 Estimated blood loss: 10 ml 11:41:55 Post procedure instruction explained to patient.Patient verbalizes understanding. 11:42:30 Procedure and supply charges have been captured, reviewed, submitted and are correct. 11:42:56 Procedure Complication : No complications 11:42:59 Vital chart was stopped 11:43:01 See physician's report for complete and final results. 11:43:05 Report given to [facility]. 11:43:12 Patient transfered to [facility] with Bed. 11:43:14 Procedure ended. 11:43:14 Full Disclosure recording stopped 11:43:20 End room use (Document Last) 11:44:42 Plavix 75 mg P.O. was administered by Shawn Kamara RN; for antiplatelet therapy; Intervention Summary Intervention Notes Time ActionType Lesion and Equipment Used Action# Pressure Duration Attributes 11:36:30 Inflate 1st Diag EUPHORA 2.5 x 1 13 00:07 balloon 15 Balloon ([id number]) 11:36:41 Reinflate 1st Diag EUPHORA 2.5 x 2 17 00:05 balloon 15 Balloon ([id number]) 11:38:20 Place stent 1st Diag LYNETTE RX 2.5 x 3 17 00:10 18 stent ([id number]) Device Usage Item Name Manufacture Quantity Catalog Number Hospital Part Current M inimal Lot# / Charge Number Stock Stock Serial# Code ACIST Syringe Acist 1 36960 027763 836343 577124 2 0 (43056) [employer] Bag Decanter Microtek 1 125983 31430 512044 5 () Medical Inc. Medline Cath Cardinal 1 [id number] 984434 22592 722451 5 Pack Health ([id number]) SHEATH 6FR Terumo 1 [id number] 217957 583432 440622 4 0 Clever (RYR862) DIAGNOSTIC [facility] [place] 1 964241 538505 288987 564960 3 0 WIRE .035 260cm J wire (666005) ACIST Hand Acist 1 46101 446945 733470 451021 5 Control Medical (51942) Systems Inc ACIST Manifold Acist 1 35296 586600 381697 977129 5 (03515) Medical Systems Inc Tegaderm 4 x 4 3M 1 1626W 499771 336910 677034 5 (1626W) PERCUTANEOUS Cook Medical 1 H57628 745298 591562 5 ENTRY 19GA needle GUIDE 6FR Cardinal 1 [id number] 900219 296237 753979 1 0 XBLAD 3.5 Health catheter ([id number]) CHOICE PT [place] 1 [id number] 732770 924996 228556 5 Extra Support Scientific 182cm wire ([id number]) INFLATOR Merit Merit 1 ZK9297 985646 303075 002958 1 5 SPR Therapeutics Medical (NF3459) EUPHORA 2.5 x Medtronic 1 [id number] 711995 342290 355116 5 [id number] 15 Balloon ([id number]) LYNETTE RX 2.5 x Medtronic 1 [id number] 461865 1679697 665827 5 [id number] 18 stent ([id number]) EXOSEAL 6Fr Cardinal 1 EX600 120324 000355 962627 1 0 (EX600) Health Signature Audit [place] Stage Time Signature Unsigned Intra-Procedure 07/23/2017 Sarah Valdez 11:45:02 AM RT(R) Signatures Monitor : Sarah Valdez Signature : RT Date : Time : [facility] [address] [place] [address]
--- NOTE | ~2017-07-21 | HEMODYNAMI ---
PATIENT:PIO PARKER MEDICAL RECORD: [id number] : 60 [facility] [id number] ADMISSION DATE: 07/21/17 Generatedon:07/22/201712:41 Patient name: PIO PARKER Patient #: [id number] SSN: [id number] : 1960 Date of study: 07/22/2017 Page: Of Hemodynamic Procedure Report Patient Data Patient Demographics Procedure consent was obtained First Name: PIO Gender: Male Last Name: : 1960 [facility] Initial: L Age: 57 year(s) Patient #: [id number] Race: SSN: [id number] Additional ID: [id number] Contact details Address: [address] [place] [address] State: [place] City: [place] Zip code: [address] Past Medical History Allergies Allergen Reaction Date Comments Reported Other allergy 02/17/2015 penicillins Penicillins 05/03/2015 Other allergy 09/13/2016 penicillin Other allergy 07/22/2017 Penicillin Admission Admission Data Admission Date: 07/21/2017 Admission Time: 14:28 Arrival Date: 07/21/2017 Arrival Time: 14:28 Admit Source: Other Insurance Payor: Medicaid Room #: D.2137 Height (in.): 75 BSA: 2.07 (m2) Height (cm.): 190.5 BMI: 21.88 (kg/m2) Weight (lbs.): 175.05 Weight (kg.): 79.4 Lab Results Lab Result Date: 07/22/2017 Lab Result Time: 0:00 Biochemistry Name Units Result Min Max BUN mg/dl 15 --(--*-)-- 7 18 Creatinine mg/dl 0.7 --(*---)-- 0.6 1.3 CBC Name Units Result Min Max Hemoglobin g/dl 13.5 --(*---)-- 13.5 17.5 Procedure Procedure Types Cath Procedure Diagnostic Procedure LHC LHC w/Coronaries FFR/IVUS Intra-Coronary IVUS Initial PCI Procedure PTCA PTCA Initial Miscellaneous Procedures Moderate Sedation up to 15 minutes Procedure Description Procedure Date Procedure Date: 07/22/2017 Procedure Start Time: 12:20 Procedure End Time: 12:38 Procedure Staff Name Function Angelo Norris MD Performing Physician Millie Thompson RT Monitor Sarah Valdez RT Scrub Katelyn Yanes RN Nurse Indication Angina Procedure Data Cath Procedure Fluoroscopy Diagnostic fluoroscopy Total fluoroscopy Time: 4.6 time: 4.6 min min Diagnostic fluoroscopy Total fluoroscopy dose: 802 dose: 802 mGy mGy Contrast Material Contrast Material Type Amount (ml) Isovue 300 78 Entry Location Entry Primary Successful Side Size Upsize Upsize Entry Closure Succes sful Closure Location (Fr) 1 (Fr) 2 (Fr) Remarks Device Remarks Femoral Right 5 Fr 6 Fr Exoseal artery Short Estimated blood loss: 5 ml Diagnostic catheters Device Type Used For End Catheter Placement MULTIPACK Pigtail 5 Fr LV Angiography catheter MULTIPACK JL 4.0 5Fr Left Coronary catheter Angiography MULTIPACK 3DRC 5Fr Right Coronary catheter Angiography Procedure Complications No complications Procedure Medications Medication Administration Route Dosage 0.9% NaCl I.V. 100 ml/hr Oxygen NC 2 l/min Lidocaine 2% added to field 20 Heparin Flush Bag added to field 2 bags (1000units/500ml NS) Fentanyl I.V. 100 mcg Versed I.V. 2 mg Versed I.V. 2 mg Fentanyl I.V. 100 mcg Fentanyl I.V. 50 mcg Fentanyl I.V. 50 mcg Heparin Bolus I.V. 4000 units Versed I.V. 1 mg Hemodynamics Rest BSA: 2.07 (m2) HGB: 13.5 (g/dl) O2 Consumption: Estimated: 252.91 (ml/min) O2 Co nsumption indexed: Estimated:122.18 (ml/min/m) Heart Rate: 81 (bpm) Pressure Samples Time Site Value (mmHg) Purpose Heart Use Rate(bpm) 12:23 LV 71/9,20 Snapshot 78 Snapshots Pre Cath Intra NCS Post Cath Vital Signs Time Heart Resp SPO2 etCO2 NIBP Rhythm Pain Sedation Rate (ipm) (%) (mmHg) (mmHg) Status Level (bpm) 12:08:08 68 18 99 23.9 103/69(84) NSR 0 (11) 10(A) , No pain 12:12:16 82 17 98 26.9 99/65(80) NSR 0 (11) 10(A) , No pain 12:16:20 79 19 98 32.8 92/66(73) NSR 0 (11) 10(A) , No pain 12:20:19 75 15 98 26.9 91/68(75) NSR 0 (11) 10(A) , No pain 12:24:21 76 17 95 38 94/64(72) NSR 0 (11) 9(A) , No pain 12:28:23 74 19 98 20.9 75/49(61) NSR 0 (11) 9(A) , No pain 12:32:20 73 18 99 32.1 87/55(69) NSR 0 (11) 9(A) , No pain 12:36:22 79 15 99 40.3 104/59(85) NSR 0 (11) 10(A) , No pain Medications Time Medication Route Dose Verified Delivered Reason Not es Effectiveness by by 11:51:54 0.9% NaCl I.V. 100ml/hr Angelo Katelyn used for Jr Yanes RN procedure 11:52:02 Oxygen NC 2 l/min Angelo Katelyn Per physician Jr Yanes RN 11:52:09 Lidocaine 2% added 20ml Angelo Angelo for local to vial Jr Norris MD anesthetic field 11:52:14 Heparin Flush added 2 bags Angelo Angelo used for Bag to Jr Norris MD procedure (1000units/500ml field NS) 12:21:59 Fentanyl I.V. 100 mcg Angelo Bianchifany for sedation Jr Yanes RN 12:22:07 Versed I.V. 2 mg Angelo Katelyn for sedation Jr Yanes RN 12:24:34 Versed I.V. 2 mg Angelo Katelyn for sedation Jr Yanes RN 12:24:41 Fentanyl I.V. 100 mcg Angelo Katelyn for sedation Jr Yanes RN 12:27:00 Heparin Bolus I.V. 4000 Angelo Katelyn for cliff ified units Jr Yanes RN anticoagulation by 12:27:40 Fentanyl I.V. 50 mcg Angelo Katelyn for sedation Jr Yanes RN 12:31:36 Versed I.V. 1 mg Angelo Zepeda for sedation Jr Yanes RN 12:31:50 Fentanyl I.V. 50 mcg Angelo Zepeda for sedation Jr Yanes RN Procedure Log Time Note 11:49:10 Diagnostic Cath Status : Elective 11:49:41 Indication : Angina 11:49:45 Millie Thompson RT(R) sent for patient. Start room use. 11:49:46 Time tracking: Regular hours 11:49:50 Plan of Care:Hemodynamics will remain stable., Cardiac rhythm will remain stable., Comfort level will be maintained., Respiratory function will remain adequate., Patient/ family verbilizes understanding of procedure., Procedure tolerated without complication., Recovers from procedure without complications.. 11:50:10 Informed consent obtained and on chart 11:50:16 Admit Source: Other 11:50:22 Arrival Date: 07/21/2017 2:28:00 PM 11:50:29 Insurance Payor : Medicaid 11:50:39 Patient Height : 75 inches 11:50:48 Patient Weight : 175.05 lbs 11:51:54 0.9% NaCl 100ml/hr I.V. was administered by Katelyn Yanes RN; used for procedure; 11:52:02 Oxygen 2 l/min NC was administered by Katelyn Yanes RN; Per physician; 11:52:09 Lidocaine 2% 20ml vial added to field was administered by Angelo Norris MD; for local anesthetic; 11:52:14 Heparin Flush Bag (1000units/500ml NS) 2 bags added to field was administered by Angelo Norris MD; used for procedure; 12:07:07 Vital chart was started 12:09:54 Patient received from Med II to CCL 2 Alert and oriented. Tansferred to table in Supine position. 12:09:55 Warm blankets applied, and og hugger turned on for patient comfort. 12:09:55 Correct patient and procedure confirmed by team. 12:09:56 Baseline sample Acquired. 12:09:56 ECG and BP/O2 sat monitors applied to patient. 12:10:01 Rhythm: sinus rhythm 12:10:02 Full Disclosure recording started 12:13:19 H&P Date Dictated: 07/22/2017 New H&P dictated by physician.. 12:13:22 Pre-procedure instructions explained to patient. 12:13:23 Pre-op teaching completed and patient verbalized understanding. 12:13:24 Family in waiting room. 12:13:25 Patient NPO since Midnight. 12:13:39 Patient allergic to Other allergyPenicillin 12:13:42 Is the patient allergic to Iodine/contrast media? No. 12:13:43 Was the patient premedicated? No 12:13:44 Is patient on blood thinner?Yes 12:13:46 ACC The patient was administered the following blood thiners within the last 24 hours: ACCPlavix 12:13:48 Patient diabetic? No. 12:13:54 Previous problem with sedation/anesthesia? No ? 12:14:02 Snore? Yes 12:14:04 Sleep apnea? No 12:14:05 Deviated septum? No 12:14:05 Opens mouth fully? Yes 12:15:09 Sticks out tongue? Yes 12:15:13 Airway obstruction? No ? 12:15:16 Dentures? No ? 12:15:19 Pre procedure: right dorsailis pedis pulse 1+ Palpable, but thready & weak; easily obliterated 12:15:25 Patient pain scale 0/10 ?. 12:15:32 IV patent on arrival in left forearm with 0.9% NaCl at [facility]. 12:15:37 Lab results completed and on chart. 12:15:40 Right groin area was prepped with chlora-prep and draped in sterile fashion 12:15:41 Alarms reviewed by R. N. 12:15:41 Sharps counted by scrub and verified by R.N. 12:16:41 Lab Result : Hemoglobin 13.5 g/dl 12:16:41 Lab Result : Creatinine 0.7 mg/dl 12:16:41 Lab Result : BUN 15 mg/dl 12:16:44 Zero performed for pressure channel P1 12:17:23 Zero performed for pressure channel P1 12:17:37 Physician paged 12:18:33 Physician arrived 12:18:34 --------ALL STOP TIME OUT------ 12:18:46 Final Timeout: patient, procedure, and site verified with staff and physician. All members of the team are in agreement. 12:18:49 Right groin site verified by team. 12:18:51 Physical assessment completed. ASA score P 2 - A patient with mild systemic disease as per Angelo Norris MD. 12:19:02 Sedation plan: IV Moderate Sedation Medication:Versed, Fentanyl 12:19:06 Use device set Femoral Dx 12:19:08 ACIST Syringe (01209) opened to sterile field. 12:19:08 Bag Decanter (2002S) opened to sterile field. 12:19:08 Medline Cath Pack ([id number]) opened to sterile field. 12:19:09 SHEATH 5FR [place] (OQH364) opened to sterile field. 12:19:09 DIAGNOSTIC WIRE .035 260cm J wire (068056) opened to sterile field. 12:19:11 ACIST Hand Control (84923) opened to sterile field. 12:19:11 ACIST Manifold (31293) opened to sterile field. 12:19: DIAGNOSTIC Multipack 5Fr catheter set ([id number]) opened to sterile field. 12:19:12 Tegaderm 4 x 4 (1626W) opened to sterile field. 12:19:19 Procedure started. 12:20:27 Local anesthetic to right femoral artery with Lidocaine 2% by Angelo Norris MD.INITIAL ACCESS ONLY 12:21:59 Fentanyl 100 mcg I.V. was administered by Katelyn Yanes RN; for sedation; 12:22:07 Versed 2 mg I.V. was administered by Katelyn Yanes RN; for sedation; 12:22:11 A 5 Fr sheath was inserted into the Right Femoral artery 12:22:17 A MULTIPACK Pigtail 5 Fr catheter was advanced over the wire and used for LV Angiography. 12:23:13 LV hemodynamics recorded. 12:23:14 LV gram done using RAMIREZ 12:23:17 Injector settings: Ml/sec: 5, Volume: 15, 12:23:54 EF : 45 % 12:23:56 Catheter removed. 12:24:00 A MULTIPACK JL 4.0 5Fr catheter was advanced over the wire and used for Left Coronary Angiography. 12:24:25 LCA angiography performed. 12:24:29 Injector settings: Ml/sec: 3, Volume: 6, 12:24:34 Versed 2 mg I.V. was administered by Katelyn Yanes RN; for sedation; 12:24:41 Fentanyl 100 mcg I.V. was administered by Katelyn Yanes RN; for sedation; 12:25:35 Catheter removed. 12::40 A MULTIPACK 3DRC 5Fr catheter was advanced over the wire and used for Right Coronary Angiography. 12::54 RCA angiography performed. 12::57 Injector settings: Ml/sec: 3, Volume: 6, 12:26:10 RCA angiography performed. 12::13 Injector settings: Ml/sec: 3, Volume: 6, 12:26:22 Catheter removed. 12:27:00 Heparin Bolus 4000 units I.V. was administered by Katelyn Yanes RN; for anticoagulation; verified by 12:27:08 SHEATH 6FR [place] (LSC145) opened to sterile field. 12:27:08 INFLATOR Merit BasixCompak (IZ1408) opened to sterile field. 12:27:09 CHOICE PT Extra Support 182cm wire ([id number]) opened to sterile field. 12:27:10 [place] IVUS Catheter (93264E) opened to sterile field. 12:27:16 GUIDE 6FR [place] 2.0 catheter (NL2SP43) opened to sterile field. 12::25 Sheath upsized to a 6 Fr Short. 12:27:33 6 Fr ar 2 guide catheter was inserted over the wire 12::40 Fentanyl 50 mcg I.V. was administered by Katelyn Yanes RN; for sedation; 12:29:33 Guide Catheter removed. pressure damping. 12:29:46 GUIDE 6FR AR 2.0 SH catheter ([id number]) opened to sterile field. 12:29:59 6 Fr ar 2 sh guide catheter was inserted over the wire 12:30:07 choice pt wire advanced. 12:30:08 Wire advanced across lesion. 12:30:18 IVUS catheter advanced over wire. 12:31:36 Versed 1 mg I.V. was administered by Katelyn Yanes RN; for sedation; 12:31:50 Fentanyl 50 mcg I.V. was administered by Katelyn Yanes RN; for sedation; 12:32:50 IVUS pass to RCA lesion performed. 12:32:51 IVUS catheter removed over wire. 12:34:20 Inflation number: 1 A EUPHORA 3.5 x 15 Balloon ([id number]) was prepped and advanced across the Dist RCA, then inflated to 21 AGUEDA for 0:10 (min:sec). 12:34:32 Inflation number: 2 The EUPHORA 3.5 x 15 Balloon ([id number]) was reinflated across the Dist RCA, to 21 AGUEDA for 0:10 (min:sec). 12:34:54 Inflation number: 1 The EUPHORA 3.5 x 15 Balloon ([id number]) was reinflated across the Mid RCA, to 15 AGUEDA for 0:10 (min:sec). 12:35:25 Balloon removed over the wire. 12:35:29 Wire removed. 12:35:30 Guide catheter removed. 12:35:36 EXOSEAL 6Fr (EX600) opened to sterile field. 12:35:48 Sheath removed intact; hemostasis achieved with Exoseal to the Right Femoral artery. 12:35:50 Procedure ended.(Physican Out) 12:36:00 Fluoroscopy time 04.60 minutes. 12:36:04 Fluoroscopy dose: 802 mGy 12:36:04 Flurop Dose total: 802 12:36:46 Contrast amount:Isovue 300 78ml. 12:36:48 Sharps counted by scrub and verified by R.N. 12:36:51 Insertion/operative site no bleeding no hematoma. 12:36:53 Post-op/insertion site Right Femoral artery dressed using a 4 x 4 and Tegaderm. 12:36:55 Post right femoral artery:stable 12:36:57 Post Procedure Pulses reassessed and unchanged 12:36:59 Post procedure rhythm: unchanged. 12:37:02 Estimated blood loss: 5 ml 12:37:03 Post procedure instruction explained to patient.Patient verbalizes understanding. 12:37:03 Patient needs reinforcement of post procedure teaching. 12:37:32 Procedure type changed to Cath procedure, Diagnostic procedure, LHC, LHC w/Coronaries, FFR/IVUS, Intra-Coronary IVUS Initial, PCI procedure, PTCA, PTCA Initial, Miscellaneous Procedures, Moderate Sedation up to 15 minutes 12:37:57 Procedure and supply charges have been captured, reviewed, submitted and are correct. 12:38:01 Procedure Complication : No complications 12:38:07 Vital chart was stopped 12:38:08 See physician's report for complete and final results. 12:38:11 Report given to Med II. 12:38:13 Patient transfered to CVICU with Stretcher. 12:38:15 Procedure ended. 12:38:15 Full Disclosure recording stopped 12:38:21 ACC-PCI Only Patient was given prescriptions, or instructed by Angelo Norris MD to start/continue the following medications upon discharge: Plavix 12:38:23 End room use (Document Last) Intervention Summary Intervention Notes Time ActionType Lesion and Equipment Action# Pressure Duration Attributes Used 12:34:20 Inflate Dist RCA EUPHORA 1 21 00:10 balloon 3.5 x 15 Balloon ([id number]) 12:34:32 Reinflate Dist RCA EUPHORA 2 21 00:10 balloon 3.5 x 15 Balloon ([id number]) 12:34:54 Reinflate Mid RCA EUPHORA 1 15 00:10 balloon 3.5 x 15 Balloon ([id number]) Device Usage Item Name Manufacture Quantity Catalog Number Hospital Part Current Minim al Lot# / Charge Number Stock Stock Serial# Code ACIST Acist 1 05239 120236 881270 585514 20 Syringe Medical (25723) Systems Inc Bag Microtek 1 2001S 353021 60682 701497 5 Decanter Medical Inc. (2001S) Medline Cardinal 1 [id number] 278687 91829 055392 5 Cath Pack Health ([id number]) SHEATH 5FR Terumo 1 YGW702 319193 097903 307890 40 [place] (WQR049) DIAGNOSTIC [facility] [place] 1 137036 757077 367671 257609 30 WIRE .035 260cm J wire (270941) ACIST Hand Acist 1 56033 653491 089590 624310 5 Control Medical (38240) Systems Inc ACIST Acist 1 38375 653782 979803 032954 5 Manifold Medical (39271) Systems Inc DIAGNOSTIC Cardinal 1 WI0891 490284 32930 123311 30 Multipack Health 5Fr catheter set (DX8127) Tegaderm 4 3M 1 1626W 815291 073498 355815 5 x 4 (1626W) MULTIPACK Cardinal 1 597759 5 Pigtail 5 Health Fr catheter MULTIPACK Cardinal 1 504341 5 JL 4.0 5Fr Health catheter MULTIPACK Cardinal 1 891335 5 3DRC 5Fr Health catheter SHEATH 6FR Terumo 1 RHN643 411945 507258 184956 40 [place] (HOI847) INFLATOR Merit 1 ZC7531 187960 220758 060927 15 Merit Medical BasixCompak (PU0005) CHOICE PT [place] 1 [id number] 411911 246428 225742 5 Extra Scientific Support 182cm wire ([id number]) [place] 1 72981D 648643 862776 516811 8 [place] IVUS Catheter (80200H) GUIDE 6FR Medtronic 1 [id number] 543595 49386 122405 1 AR 2.0 catheter (DY4RH81) GUIDE 6FR Medtronic 1 [id number] 539447 11786 658369 1 AR 2.0 SH catheter ([id number]) EUPHORA 3.5 Medtronic 1 [id number] 936107 221704 731361 5 [id number] x 15 Balloon ([id number]) EXOSEAL 6Fr Cardinal 1 EX600 065913 102726 222659 10 (EX600) Health Signature Audit [place] Stage Time Signature Unsigned Intra-Procedure 07/22/2017 Millie Thompson 12:41:18 PM RT(R) Signatures Monitor : Millie Thompson RT Signature : Date : Time : [place] [id number] [place] [address]
[2017-07-21 13:29] LABS: ALBUMIN 3.6 g/dL (3.4-5.0); ALKALINE PHOSPHATASE 76 U/L (46-116); ALT (SGPT) 18 U/L (10-68); BILIRUBIN - TOTAL 0.32 mg/dL (0.2-1.3); CALC OSMOLALITY 273 mosm/kg (275-300); CALCIUM 8.8 mg/dL (8.5-10.1); CARBON DIOXIDE 29.9 mmol/L (21.0-32.0); CHLORIDE - SERUM 102 mmol/L (98-107); CREATININE - SERUM 0.7 mg/dL (0.6-1.3); GLUCOSE 87 mg/dL (74-106); POTASSIUM - SERUM 4.2 mmol/L (3.5-5.1); PROTEIN - SERUM 7.2 g/dL (6.4-8.2); SODIUM 137 mmol/L (136-145); UREA NITROGEN 15 mg/dL (7-18); eGFR NON AFRICAN AMERICAN > 90 mL/min (90-120)
[2017-07-21 13:41] LABS: CKMB 1.6 U/L (0.0-3.6); CREATINE KINASE 56 UL (21-232); PRO BNP 88 pg/mL (0-125)
[2017-07-21 13:43] LABS: TROPONIN-I < 0.017 ng/mL (0.000-0.060)
[2017-07-21 13:51] LABS: HEMATOCRIT 39.7 % (42.0-54.0); HEMOGLOBIN 13.5 g/dL (13.5-17.5); LYMPHOCYTES 34.3 % (15-50); MCH 29.5 pg (26.0-34.0); MCV 86.9 fL (80.0-100.0); MEAN PLATELET VOLUME 8.7 fL (7.4-10.4); NEUTROPHILS 59.1 % (40-80); PLATELET COUNT 212 10x3/uL (130-400); RBC 4.57 10x6/uL (4.20-6.10); RDW 15.4 % (11.5-14.5)
[2017-07-21 17:18] VITALS: BP 113/61; BMI 21.9
[2017-07-21 18:03] VITALS: BP 120/72
[2017-07-21 19:00] VITALS: BP 109/56
[2017-07-22] VITALS: BP 89/40
[2017-07-22 04:00] VITALS: BP 93/46
[2017-07-22 09:25] VITALS: BP 108/71
[2017-07-22 11:46] VITALS: BP 104/61
[2017-07-22 12:08] VITALS: Ht 190.5 cm; Wt 76.1 kg
[2017-07-22 16:11] VITALS: BP 106/59
[2017-07-22 20:00] VITALS: BP 112/50
[2017-07-23] VITALS (10 sets, daily range): BP systolic 88–128; BP diastolic 51–76
== END 2017-07-23 18:27 | disposition home or self-care (01) ==
LOC: D.ER 11:56 → D.M2 14:28 → OBSVTIME 14:28 → D.EDHOLD 14:28 → D.M2 16:24
PROVIDERS: Family Medicine
DX: I25.110 Atherosclerotic heart disease of native coronary artery with unstable angina pectoris (principal); Z95.5 Presence of coronary angioplasty implant and graft; T82.855A Stenosis of coronary artery stent, initial encounter; Y83.9 Surgical procedure, unspecified as the cause of abnormal reaction of the patient, or of later complication, without mention of misadventure at the time of the procedure; J44.9 Chronic obstructive pulmonary disease, unspecified; I10 Essential (primary) hypertension

== ENCOUNTER 2017-07-24 12:27 | Emergency (ER) | payer MEDICAID ==
[2017-07-22 12:08] VITALS: BMI 21.8
[2017-07-24 12:51] LABS: BASOPHILS 0.1 % (0-2); EOSINOPHILS 1.4 % (0-7); HEMATOCRIT 41.3 % (42.0-54.0); HEMOGLOBIN 13.8 g/dL (13.5-17.5); IMMATURE GRANULOCYTES 0.2 % (0-5); LYMPHOCYTES 11.2 % (15-50); MCH 29.9 pg (26.0-34.0); MCHC 33.4 g/dL (31.0-37.0); MCV 89.6 fL (80.0-100.0); MONOCYTES 7.4 % (2-11); NEUTROPHILS 79.7 % (40-80); PLATELET COUNT 194 10x3/uL (130-400); RBC 4.61 10x6/uL (4.20-6.10); RDW 15.3 % (11.5-14.5); WBC 9.9 10x3/uL (4.8-10.8)
[2017-07-24 13:10] LABS: ALBUMIN 3.8 g/dL (3.4-5.0); ALKALINE PHOSPHATASE 85 U/L (46-116); ALT (SGPT) 22 U/L (10-68); BILIRUBIN - TOTAL 0.23 mg/dL (0.2-1.3); CALC OSMOLALITY 270 mosm/kg (275-300); CARBON DIOXIDE 27.1 mmol/L (21.0-32.0); CHLORIDE - SERUM 102 mmol/L (98-107); CREATININE - SERUM 0.9 mg/dL (0.6-1.3); GLUCOSE 87 mg/dL (74-106); POTASSIUM - SERUM 4.4 mmol/L (3.5-5.1); PROTEIN - SERUM 7.7 g/dL (6.4-8.2); SODIUM 136 mmol/L (136-145); UREA NITROGEN 13 mg/dL (7-18); eGFR NON AFRICAN AMERICAN > 90 mL/min (90-120)
[2017-07-24 13:27] LABS: CHOL - HDL RATIO 2.7 ratio (2.3-4.9); CHOLESTEROL, TOTAL 164 mg/dL (0-200); CKMB 1.9 U/L (0.0-3.6); CREATINE KINASE 62 UL (21-232); HDL CHOLESTEROL 60 mg/dL (32-96); LDL CHOLESTEROL 87 mg/dL (0-100); LDL-HDL RATIO 1.5 ratio (1.5-3.5); TRIGLYCERIDE 85 mg/dL (30-200)
[2017-07-24 13:29] LABS: TROPONIN-I 0.071 ng/mL (0.000-0.060)
[2017-07-24 13:30] LABS: INR 0.92 (0.85-1.17)
[2017-07-24 14:54] LABS: APPEARANCE CLEAR (CLEAR); BILIRUBIN NEGATIVE (NEGATIVE); COLOR YELLOW (YELLOW); GLUCOSE NEGATIVE (NEGATIVE); KETONE NEGATIVE (NEGATIVE); NITRITE NEGATIVE (NEGATIVE); PROTEIN NEGATIVE (NEGATIVE); UROBILINOGEN NORMAL (NORMAL)
== END 2017-07-24 15:41 | disposition home or self-care (01) ==
LOC: D.ER 12:27
PROVIDERS: Emergency Medicine; Nurse Practitioner Family
DX: R07.9 Chest pain, unspecified (principal); Z98.890 Other specified postprocedural states; I50.9 Heart failure, unspecified; K21.9 Gastro-esophageal reflux disease without esophagitis; I10 Essential (primary) hypertension

== ENCOUNTER 2017-10-17 15:50 | Observation (INO) | payer MEDICAID ==
[~2017-10-17] VITALS: Ht 190.5 cm; Wt 71.7 kg
--- NOTE | ~2017-10-17 | HEMODYNAMI ---
PATIENT:PIO PARKER MEDICAL RECORD: [id number] : 60 LOCATION:[facility] [id number] ADMISSION DATE: 10/17/17 Generatedon:10/18/201710:02 Patient name: PIO PARKER Patient #: [id number] SSN: [id number] : 1960 Date of study: 10/18/2017 Page: Of Hemodynamic Procedure Report Patient Data Patient Demographics Procedure consent was obtained First Name: PIO Gender: Male Last Name: : 1960 [facility] Initial: L Age: 57 year(s) Patient #: [id number] Race: SSN: [id number] Additional ID: [id number] Contact details [address]: [address] [place] [address] State: [place] City: [place] Zip code: [address] Past Medical History Allergies Allergen Reaction Date Comments Reported Other allergy 02/17/2015 penicillins Penicillins 05/03/2015 Other allergy 09/13/2016 penicillin Other allergy 07/22/2017 Penicillin Other allergy 10/18/2017 N Admission Admission Data Admission Date: 10/17/2017 Admission Time: 17:15 Room #: [facility]6 Height (in.): 74.8 BSA: 1.97 (m2) Height (cm.): 190 BMI: 19.67 (kg/m2) Weight (lbs.): 156.53 Weight (kg.): 71 Lab Results Lab Result Date: 10/18/2017 Lab Result Time: 0:00 Biochemistry Name Units Result Min Max BUN mg/dl 15 --(--*-)-- 7 18 Creatinine mg/dl 0.7 --(*---)-- 0.6 1.3 CBC Name Units Result Min Max Hemoglobin g/dl 13.1 -*(----)-- 13.5 17.5 Procedure Procedure Types Cath Procedure Diagnostic Procedure LHC LHC w/Coronaries Sedation Charges Moderate Sedation up to 15 minutes PCI Procedure PTCA PTCA Initial Peripheral Cath Diagnostic Procedure Cath Peripheral Four Vessel Arteriogram Procedure Description Procedure Date Procedure Date: 10/18/2017 Procedure Start Time: 9:33 Procedure End Time: 9:57 Procedure Staff Name Function Jim Graham MD Performing Physician Sarah Valdez RT Monitor Anmol Watt RN Nurse Franklin Carmichael RT Scrub Procedure Data Cath Procedure Fluoroscopy Diagnostic fluoroscopy Total fluoroscopy Time: 4 time: 4 min min Diagnostic fluoroscopy Total fluoroscopy dose: 720 dose: 720 mGy mGy Contrast Material Contrast Material Type Amount (ml) Isovue 300 118 Entry Location Entry Primary Successful Side Size Upsize Upsize Entry Closure Succes sful Closure Location (Fr) 1 (Fr) 2 (Fr) Remarks Device Remarks Femoral Right 5 Fr 6 Fr artery Short Estimated blood loss: 10 ml Diagnostic catheters Device Type Used For End Catheter Placement MULTIPACK JL 4.0 5Fr Procedure catheter MULTIPACK 3DRC 5Fr Procedure catheter MULTIPACK Pigtail 5 Fr Procedure catheter Procedure Complications No complications Procedure Medications Medication Administration Route Dosage Oxygen NC 2 l/min Lidocaine 2% added to field 20 Heparin Flush Bag added to field 2 bags (1000units/500ml NS) 0.9% NaCl I.V. 100 ml/hr Versed I.V. 1 mg Fentanyl I.V. 50 mcg Versed I.V. 1 mg Fentanyl I.V. 50 mcg Heparin Bolus I.V. 4000 units Versed I.V. 1 mg Fentanyl I.V. 50 mcg Solumedrol I.V. 125 mg Versed I.V. 1 mg Fentanyl I.V. 50 mcg Hemodynamics Rest BSA: 1.97 (m2) HGB: 13.1 (g/dl) O2 Consumption: Estimated: 230.69 (ml/min) O2 Co nsumption indexed: Estimated:117.1 (ml/min/m) Heart Rate: 67 (bpm) Snapshots Pre Cath Intra NCS Post Cath Vital Signs Time Heart Resp SPO2 etCO2 NIBP (mmHg) Rhythm Pain Sedation Rate (ipm) (%) (mmHg) Status Level (bpm) 9:22:03 68 18 98 33.6 133/80(98) NSR 0 (11) 10(A) , No pain 9:26:41 77 16 99 41.1 124/87(103) NSR 0 (11) 10(A) , No pain 9:31:20 79 16 97 25.4 125/79(93) NSR 0 (11) 10(A) , No pain 9:35:59 76 18 96 2.2 114/74(90) NSR 0 (11) 9(A) , No pain 9:40:35 76 16 97 2.9 109/68(89) NSR 0 (11) 9(A) , No pain 9:45:11 71 15 97 35.9 107/65(81) NSR 0 (11) 9(A) , No pain 9:49:46 77 15 97 26.2 105/72(87) NSR 0 (11) 9(A) , No pain 9:54:21 68 16 98 16.4 110/70(92) NSR 0 (11) 10(A) , No pain 9:58:51 79 15 100 32.2 110/71(87) NSR 0 (11) 10(A) , No pain Medications Time Medication Route Dose Verified Delivered Reason Notes Effectiveness by by 9:23:14 Oxygen NC 2 Jim Buffie used for l/min St Arslan Watt RN procedure 9:23:20 Lidocaine 2% added 20ml Jim Jim for local to vial [facility] anesthetic field MD DELGADO 9:23:25 Heparin Flush added 2 Jim Jim used for Bag to bags [facility] procedure (1000units/500ml field MD DELGADO NS) 9:23:34 0.9% NaCl I.V. 100 Jim Buffie Per physician ml/hr St Arslan Watt RN, MD 9:29:40 Versed I.V. 1 mg Jmi Buffie for sedation St Arslan Watt RN, MD 9:29:45 Fentanyl I.V. 50 Jim Buffie for sedation mcg St Arslan Watt RN, MD 9:33:18 Versed I.V. 1 mg Jim Buffie for sedation St Arslan Watt RN, MD 9:33:22 Fentanyl I.V. 50 Jim Buffie for sedation mcg St Arslan Watt RN, MD 9:37:38 Versed I.V. 1 mg Jim Buffie for sedation St Arslan Watt RN, MD 9:37:42 Fentanyl I.V. 50 Jim Buffie for sedation justin Root RN, MD 9:40:32 Versed I.V. 1 mg Jim Buffie for sedation St Arslan Watt RN, MD 9:40:35 Fentanyl I.V. 50 Jim Buffie for sedation mcg St Arslan Watt RN, MD 9:42:33 Heparin Bolus I.V. 4000 Jim Corea for verifie d units St Arslan Watt RN anticoagulation with dr MD mooney 9:50:54 Solumedrol I.V. 125 Jim Corea Per physician mg St Arslan Watt RN, MD Procedure Log Time Note 8:54:39 Patient Height : 74.8 inches 8:54:44 Patient Weight : 156.53 lbs 8:55:45 Lab Result : Hemoglobin 13.1 g/dl 8:55:45 Lab Result : Creatinine 0.7 mg/dl 8:55:45 Lab Result : BUN 15 mg/dl 8:56:34 Diagnostic Cath status Elective 8:56:37 Sarah Valdez RT(R) sent for patient. Start room use. 8:56:39 Time tracking: Regular hours (M-F 7:00 - 5:00) 8:56:45 Plan of Care:Hemodynamics will remain stable., Cardiac rhythm will remain stable., Comfort level will be maintained., Respiratory function will remain adequate., Patient/ family verbilizes understanding of procedure., Procedure tolerated without complication., Recovers from procedure without complications.. 9:10:28 Patient received from Med II to CCL 1 Alert and oriented. Tansferred to table in Supine position. 9:10:29 Warm blankets applied, and og hugger turned on for patient comfort. 9:10:29 Correct patient and procedure confirmed by team. 9:10:31 Signed procedure consent form obtained from patient. 9:10:33 Pre-procedure instructions explained to patient. 9:10:33 Pre-op teaching completed and patient verbalized understanding. 9:10:35 ECG and BP/O2 sat monitors applied to patient. 9:21:11 Baseline sample Acquired. 9:21:11 Vital chart was started 9:21:16 Rhythm: sinus rhythm 9:21:18 Full Disclosure recording started 9:21:32 H&P Date Dictated: 10/17/2017 Within 30 days and on chart.. 9:21:34 Family in waiting room. 9:21:36 Patient NPO since Midnight. 9:22:00 Patient allergic to Other allergyPCN 9:22:45 Was the patient premedicated? Yes 9:22:48 Is patient on blood thinner?Yes 9:22:50 ACC The patient was administered the following blood thiners within the last 24 hours: ACCPlavix 9:23:14 Oxygen 2 l/min NC was administered by Anmol Watt RN; used for procedure; 9:23:20 Lidocaine 2% 20ml vial added to field was administered by Jim Graham MD; for local anesthetic; 9:23:25 Heparin Flush Bag (1000units/500ml NS) 2 bags added to field was administered by Jim Graham MD; used for procedure; 9:23:34 0.9% NaCl 100 ml/hr I.V. was administered by Anmol Watt RN; Per physician; 9:27:12 Patient diabetic? No. 9:27:22 Snore? No 9:27:24 Sleep apnea? No 9:27:46 Airway obstruction? Yes COPD/Asthma 9:27:55 Patient pain scale 8/10 ?. 9:28:06 IV patent on arrival in left forearm with 0.9% NaCl at [facility]. 9:28:13 Lab results completed and on chart. 9:28:20 Right groin area was prepped with chlora-prep and draped in sterile fashion 9:28:22 Alarms reviewed by R. N. 9:28:23 Sharps counted by scrub and verified by R.N. 9:28:30 Physician arrived 9:28:37 --------ALL STOP TIME OUT------ 9:28:39 Final Timeout: patient, procedure, and site verified with staff and physician. All members of the team are in agreement. 9:28:41 Right groin site verified by team. 9:29:00 Physical assessment completed. ASA score P 2 - A patient with mild systemic disease as per Jim Graham MD. 9:29:05 Sedation plan: IV Moderate Sedation Medication:Versed, Fentanyl 9:29:40 Versed 1 mg I.V. was administered by Anmol Watt RN; for sedation; 9::45 Fentanyl 50 mcg I.V. was administered by Anmol Watt RN; for sedation; 9:32:33 Procedure started. 9:32:35 Zero performed for pressure channel P1 9:33:02 Use device set Femoral Dx 9:33:04 ACIST Syringe (50356) opened to sterile field. 9:33:04 Bag Decanter () opened to sterile field. 9:33:04 Medline Cath Pack ([id number]) opened to sterile field. 9:33:05 DIAGNOSTIC WIRE .035 260cm J wire (404875) opened to sterile field. 9:33:06 ACIST Hand Control (38587) opened to sterile field. 9:33:06 ACIST Manifold (49695) opened to sterile field. 9:33:07 DIAGNOSTIC Multipack 5Fr catheter set (EE6250) opened to sterile field. 9:33:08 Tegaderm 4 x 4 (1626W) opened to sterile field. 9:33:09 PERCUTANEOUS ENTRY 19GA needle opened to sterile field. 9:33:12 SHEATH Prelude 5Fr 0.035 (XLN-5U-20-035) opened to sterile field. 9:33:18 Versed 1 mg I.V. was administered by Anmol Watt RN; for sedation; 9:33:20 Local anesthetic to right femoral artery with Lidocaine 2% by Jim Graham MD.INITIAL ACCESS ONLY 9:33:22 Fentanyl 50 mcg I.V. was administered by Anmol Watt RN; for sedation; 9:33:33 A 5 Fr sheath was inserted into the Right Femoral artery 9:34:10 A MULTIPACK JL 4.0 5Fr catheter was advanced over the wire and used for Procedure. 9:34:15 LCA angiography performed. 9:36:57 Catheter removed. 9:37:05 A MULTIPACK 3DRC 5Fr catheter was advanced over the wire and used for Procedure. 9:37:38 Versed 1 mg I.V. was administered by Anmol Watt RN; for sedation; 9:37:42 Fentanyl 50 mcg I.V. was administered by Anmol Watt RN; for sedation; 9:39:15 RCA angiography performed. 9:39:43 Right carotid angiography performed. 9:40:32 Versed 1 mg I.V. was administered by Anmol Watt RN; for sedation; 9:40:35 Fentanyl 50 mcg I.V. was administered by Anmol Watt RN; for sedation; 9:40:42 Left carotid angiography performed. 9:40:55 Catheter removed. 9:41:43 GUIDE 6FR HS I catheter (LA6HSI) opened to sterile field. 9:41:44 WHISPER 300cm guide wire ([id number]) opened to sterile field. 9:41:44 INFLATOR Merit Jeremyk (EX5179) opened to sterile field. 9:41:45 SHEATH 6Fr Prelude ([id number]) opened to sterile field. 9:42:33 Heparin Bolus 4000 units I.V. was administered by Anmol Watt RN; for anticoagulation; verified with dr mooney 9:43:27 Sheath upsized to a 6 Fr Short. 9:44:16 A MULTIPACK Pigtail 5 Fr catheter was advanced over the wire and used for Procedure. 9:44:28 LV angiography performed. 9:44:32 LV gram done using RAMIREZ 9:45:58 Zero performed for pressure channel P1 9:47:37 EF : 40 % 9:47:46 Proceeding to intervention. 9:47:58 6 Fr HS1 guide catheter was inserted over the wire 9:48:41 Whisper wire advanced. 9:50:54 Solumedrol 125 mg I.V. was administered by Anmol Watt RN; Per physician; 9:52:22 Inflate balloon Inflation number: 1 A EMERGE OTW 3.5 x 15 balloon ([id number]) was prepped and advanced across the Dist RCA, then inflated to 10 AGUEDA for 0:24 (min:sec). 9:53:28 EXOSEAL 6Fr (EX600) opened to sterile field. 9:53:34 Balloon removed over the wire. 9:53:35 Wire removed. 9:53:36 Guide catheter removed. 9:53:59 Procedure ended.(Physican Out) 9:54:54 Fluoroscopy time 04.00 minutes. 9:55:01 Fluoroscopy dose: 720 mGy 9:55:01 Flurop Dose total: 720 9:55:04 Contrast amount:Isovue 300 118ml. 9:55:06 Sharps counted by scrub and verified by R.N. 9:55:07 Insertion/operative site no bleeding no hematoma. 9:55:12 Post-op/insertion site Right Femoral artery dressed using a 4 x 4 and Tegaderm. 9:55:14 Post Procedure Pulses reassessed and unchanged 9:55:17 Post-procedure physical assessment completed. ASA score P 2 - A patient with mild systemic disease as per Jim Graham MD. 9:55:32 Post procedure rhythm: sinus rhythm 9:55:36 Estimated blood loss: 10 ml 9:55:38 Post procedure instruction explained to patient.Patient verbalizes understanding. 9:56:35 Procedure type changed to Cath procedure, Diagnostic procedure, LHC, LHC w/Coronaries, Sedation Charges, Moderate Sedation up to 15 minutes, PCI procedure, PTCA, PTCA Initial, Peripheral Cath Diagnostic Procedure, Cath Peripheral, Four Vessel Arteriogram 9:56:37 Procedure and supply charges have been captured, reviewed, submitted and are correct. 9:57:32 Procedure Complication : No complications 9:57:36 Vital chart was stopped 9:57:40 Patient transfered to [facility] with Stretcher. 9:57:43 Procedure ended. 9:57:43 Full Disclosure recording stopped 9:57:49 ACC-PCI Only Patient was given prescriptions, or instructed by Jim Graham MD to start/continue the following medications upon discharge: Plavix 9:57:51 End room use (Document Last) 10:02:12 Femstop placed over the right femoral artery at 115 mmHg. Hemostasis achieved. Intervention Summary Intervention Notes Time ActionType Lesion and Equipment Action# Pressure Duration Attributes Used 9:52:22 Inflate Dist RCA EMERGE OTW 1 10 00:24 balloon 3.5 x 15 balloon ([id number]) Device Usage Item Name Manufacture Quantity Catalog Number Hospital Part Current Minimal Lot# / Charge Number Stock Stock Serial# Code ACIST Syringe Acist 1 85051 666065 884499 431623 20 (83567) [employer] Inc Bag Decanter Microtek 1 2001S 771415 69374 062605 5 () Medical Inc. Medline Cath Cardinal 1 [id number] 463829 43030 875879 5 Pack Health ([id number]) DIAGNOSTIC WIRE St Randal 1 287527 047797 740266 884941 30 .035 260cm J wire (872632) ACIST Hand Acist 1 68068 609033 664065 014327 5 Control (52632) Medical Systems Inc ACIST Manifold Acist 1 42061 944216 128191 127288 5 (81666) Medical Systems Inc DIAGNOSTIC Cardinal 1 [id number] 029692 99586 396802 30 Multipack 5Fr Health catheter set (GY3933) Tegaderm 4 x 4 3M 1 1626W 948384 199850 124014 5 (1626W) PERCUTANEOUS Cook Medical 1 J12076 859011 997007 5 ENTRY 19GA needle SHEATH Prelude Merit 1 NIX-3O-21-035 343835 622903 752162 5 5Fr 0.035 Medical (STV-1P-38-035) MULTIPACK JL Cardinal 1 551499 5 4.0 5Fr Health catheter MULTIPACK 3DRC Cardinal 1 043855 5 5Fr catheter Health GUIDE 6FR HS I Medtronic 1 LA6HSI 487984 68152 966727 1 catheter (LA6HSI) WHISPER 300cm Miller 1 [id number] 839903 311211 665204 5 guide wire Vascular ([id number]) INFLATOR Merit Merit 1 JT7994 096534 765841 042439 15 BasixCompak Medical (IL0022) SHEATH 6Fr Merit 1 [id number] 374389 800237 561286 5 Prelude Medical ([id number]) MULTIPACK Cardinal 1 523313 5 Pigtail 5 Fr Health catheter EMERGE OTW 3.5 [place] 1 [id number] 366433 577923 334793 5 [id number] x 15 balloon Scientific ([id number]) EXOSEAL 6Fr Cardinal 1 EX600 013476 870495 919881 10 (EX600) Health Signature Audit [place] Stage Time Signature Unsigned Intra-Procedure 10/18/2017 Sarah Valdez 10:02:31 AM RT(R) Signatures Monitor : Sarah Valdez Signature : RT Date : Time : [facility] [address] [facility] [place] [address]
--- NOTE | ~2017-10-17 | OP ---
PATIENT NAME: PIO PARKER MEDICAL RECORD: [id number] :60 LOCATION:D.M2 D.2116 ADMISSION DATE:10/17/17 SURGEON: SABRINA LOPEZ MD DATE OF OPERATION: 10/18/2017 Cath, RECEIVABLE MANAGER, 4-vessel arteriography. PROCEDURE: Left heart catheterization, selective coronary angiography, right femoral artery approach. CATHETERS: A 5-Iraqi sheath, 5/4 left and right Pushpa, 5/4 pig. The procedure was well tolerated and the patient returned to moreno. Sheath removed. ExoSeal device was placed. FINDINGS: Left ventriculography in the 30-degree RAMIREZ view shows anterior, anteroapical hypokinesis. Overall function reduced, estimated EF 40%. CORONARY ANATOMY: LEFT MAIN: Left main is free of disease. LAD: An area of previous stenting is widely patent without evidence of restenosis. CIRCUMFLEX: Circumflex has one large OM, free of disease. RIGHT CORONARY ARTERY: Had discrete in-stent restenosis of 90%. PLAN: Intervention momentarily. DESCRIPTION: A 5-Iraqi sheath was exchanged for a 6-Iraqi sheath. A hockey stick guide catheter provided excellent guide catheter support, followed by 300-cm Whisper wire placed across the 90% stenosed right coronary down the distal portion of the vessel. POBA was used with a 3.5 x 15 mm Schuyler balloon up to 12 atmospheres. This shows excellent resolution of 90% stenosis to nice step up proximally and nice step down distally. RAYO flow 3 through the procedure. The patient was previously on Plavix. Heparin was given in the lab. Sheath closed with ExoSeal device. PROCEDURE: Four-vessel arteriography. Using the diagnostic coronary catheter, both common carotids right and left were selectively engaged. Right common carotid is widely patent without evidence of significant stenosis. Right external carotid has luminal stenosis, but nothing flow obstructive. Right internal carotid is free of disease. Left system: Left common carotid is smooth-walled vessel, free of disease. Left internal carotid, smooth-walled vessel, free of disease. Left external carotid, smooth-walled vessel, free of disease. IMPRESSION: No significant carotid stenosis. Minimal early plaquing on the right external only. OPERATIVE REPORT [id number] PIO PARKER TRANSINT:[id number] Voice Confirmation ID: [id number] DOCUMENT ID: [id number] SABRINA LOPEZ MD at 0847 CC: [id number] DICTATION DATE: 10/18/17 1005 FLOOR RUNNER: 10/18/17 1513 DIS IN 10/18/17 [place] [address] [place] [address]
--- NOTE | ~2017-10-17 | CN ---
PATIENT NAME:PIO PARKER MEDICAL RECORD: [id number] : 60 LOCATION:DDaniel D.2116 ADMIT DATE: 10/17/17 ACCOUNT: [id number] CONSULTING PHYSICIAN: SABRINA LOPEZ MD REFERRING PHYSICIAN: SABRINA LOPEZ MD DATE OF CONSULTATION: 10/17/2017 HISTORY OF PRESENT ILLNESS: A 57-year-old gentleman with known history of coronary artery disease, status post intervention most recently with a restenosis and treated with balloon POBA and secondary treatment with a medicated stent. Recurrent chest pain over the past 2 days, reminiscent of his angina. Additionally, he has been having some TIA symptomatology with marked dizziness, visual changes, trouble getting words out. PAST MEDICAL HISTORY: Includes, 1. History of hypertension. 2. Hyperlipidemia. 3. Obstructive pulmonary disease. 4. Anxiety. 5. Gastroesophageal reflux disease. MEDICATIONS: Include Protonix 40 mg p.o. daily, Singulair 10 mg p.o. at bedtime, Lasix 20 mg every day, trazodone 200 at bedtime, Percocet 10/325 every day, Atarax 25 b.i.d., Klonopin 1 mg t.i.d. p.r.n., Effexor 225 daily, Wellbutrin 150 b.i.d., Ranexa 500 every day, Imdur 60 daily, carvedilol 6.25 daily, Lotensin 5 b.i.d., atorvastatin 80 daily, Plavix 75 daily, Ventolin and Spiriva inhalers. ALLERGIES: PENICILLIN. REVIEW OF SYSTEMS: The patient reports easy bruising but reports no swollen glands. The patient reports no fever, no night sweats, no significant weight gain, no significant weight loss. No significant exercise tolerance. The patient reports no dry eyes, no irritation, no vision change. Patient reports no difficulty hearing and no ear pain. Patient reports no frequent nose bleeds or nose and sinus problems. Patient reports on arm pain on exertion. No shortness of breath while lying down. No history of heart murmur. Patient reports no cough, no wheezing or coughing up blood. Patient reports no abdominal pain, no vomiting. Normal appetite. No diarrhea and not vomiting blood. No nausea and no constipation. Patient reports no incontinence. No difficulty urinating. No hematuria. No increased frequency. Patient reports no muscle aches. No weakness, no arthralgias, no back pain. No swelling of the extremities. Patient reports no abnormal mole, no jaundice, no rashes. Reports no loss of consciousness. No weakness and no numbness. No seizures, dizziness, or headaches. The patient reports no depression, no sleep disturbance, feeling safe in a relationship and no alcohol abuse. Patient reports on fatigue. Reports no runny nose or sinus pressure. No itching, no hives, and no frequent sneezing. SOCIAL HISTORY: Currently incarcerated. No exercise program. PHYSICAL EXAMINATION: GENERAL: Middle-aged gentleman in no acute distress. VITAL SIGNS: Blood pressure 105/71, pulse 75 and regular. HEENT: Normocephalic, atraumatic. CONSULT REPORT [id number] PIO PARKER NECK: There is a soft right carotid bruit. LUNGS: Fair excursion, few expiratory wheezes. ABDOMEN: Soft, nontender. EXTREMITIES: Pulses well perserved. There is no edema. IMPRESSION: Acute coronary syndrome within the window of restenosis. Plan for diagnostic angiography. Given that somewhat TIA symptomatology as well as carotid bruit, plan on 4-vessel in the same setting. TRANSINT:[id number] Voice Confirmation ID: [id number] DOCUMENT ID: [id number] SABRINA LOPEZ MD at 0847 CC: [id number] DICTATION DATE: 10/18/17 0837 INCOME AUDITOR: 10/18/17 1346 DIS IN 10/18/17 [facility] [address] [place] [address]
[2017-10-17 16:38] LABS: BASOPHILS 0.5 % (0-2); EOSINOPHILS 1.8 % (0-7); HEMATOCRIT 38.9 % (42.0-54.0); HEMOGLOBIN 13.1 g/dL (13.5-17.5); IMMATURE GRANULOCYTES 0.3 % (0-5); LYMPHOCYTES 34.1 % (15-50); MCHC 33.7 g/dL (31.0-37.0); MCV 89.2 fL (80.0-100.0); MEAN PLATELET VOLUME 9.3 fL (7.4-10.4); MONOCYTES 13.5 % (2-11); NEUTROPHILS 49.8 % (40-80); PLATELET COUNT 200 10x3/uL (130-400); RBC 4.36 10x6/uL (4.20-6.10); RDW 13.7 % (11.5-14.5); WBC 6.7 10x3/uL (4.8-10.8)
[2017-10-17 16:54] LABS: ALBUMIN 3.1 g/dL (3.4-5.0); ALKALINE PHOSPHATASE 69 U/L (46-116); ALT (SGPT) 23 U/L (10-68); BILIRUBIN - TOTAL 0.22 mg/dL (0.2-1.3); CALC OSMOLALITY 277 mosm/kg (275-300); CALCIUM 8.3 mg/dL (8.5-10.1); CARBON DIOXIDE 30.5 mmol/L (21.0-32.0); CHLORIDE - SERUM 102 mmol/L (98-107); CREATININE - SERUM 0.7 mg/dL (0.6-1.3); GLUCOSE 78 mg/dL (74-106); PROTEIN - SERUM 6.4 g/dL (6.4-8.2); SODIUM 139 mmol/L (136-145); UREA NITROGEN 15 mg/dL (7-18); eGFR NON AFRICAN AMERICAN > 90 mL/min (90-120)
[2017-10-17 16:59] LABS: TROPONIN-I < 0.017 ng/mL (0.000-0.060)
[2017-10-17 17:02] LABS: APTT 28.7 SECONDS (22.8-39.4); INR 1.06 (0.85-1.17); PROTIME 13.4 SECONDS (11.6-15.0)
[2017-10-17 20:01] VITALS: BP 119/71; Ht 190.5 cm; Wt 71.7 kg
[2017-10-17 20:20] VITALS: BP 119/71
[2017-10-17 22:08] LABS: CKMB 1.5 U/L (0.0-3.6); CREATINE KINASE 54 UL (21-232); TROPONIN-I < 0.017 ng/mL (0.000-0.060)
[2017-10-18 00:41] VITALS: BP 106/59
[2017-10-18 05:57] VITALS: BP 117/72
[2017-10-18 06:16] LABS: CREATINE KINASE 49 UL (21-232)
[2017-10-18 06:17] LABS: TROPONIN-I < 0.017 ng/mL (0.000-0.060)
[2017-10-18 08:11] VITALS: BP 105/71
[2017-10-18 11:22] VITALS: BP 123/74
[2017-10-18 15:29] VITALS: BP 139/55
== END 2017-10-18 15:33 ==
LOC: D.ER 15:50 → D.M2 17:15 → OBSVTIME 17:15 → D.M2 17:15
PROVIDERS: Emergency Medicine; Nurse Practitioner Family
DX: T82.855A Stenosis of coronary artery stent, initial encounter (principal); I25.10 Atherosclerotic heart disease of native coronary artery without angina pectoris; Y83.8 Other surgical procedures as the cause of abnormal reaction of the patient, or of later complication, without mention of misadventure at the time of the procedure; K21.9 Gastro-esophageal reflux disease without esophagitis; I10 Essential (primary) hypertension; E78.5 Hyperlipidemia, unspecified; J44.9 Chronic obstructive pulmonary disease, unspecified; F41.9 Anxiety disorder, unspecified; R42 Dizziness and giddiness; H53.9 Unspecified visual disturbance; R47.89 Other speech disturbances

== ENCOUNTER 2018-02-11 05:15 | Day surgery (SDC) | payer OTHER ==
[~2018-02-11] VITALS: Ht 190.5 cm; Wt 73.5 kg
--- NOTE | ~2018-02-11 | OP ---
PATIENT NAME: PIO PARKER MEDICAL RECORD: [id number] :60 LOCATION:D[facility] ADMISSION DATE: SURGEON: SANAM GUTIÉRREZ MD DATE OF OPERATION: 02/11/2018 PREOPERATIVE DIAGNOSES: 1. Adenocarcinoma of the esophagus. 2. Dysphagia. 3. Anticoagulated, on Plavix. 4. Need of IV access for chemotherapy. POSTOPERATIVE DIAGNOSES: 1. Adenocarcinoma of the esophagus. 2. Dysphagia. 3. Anticoagulated, on Plavix. 4. Need of IV access for chemotherapy. 5. Two apparent primary malignancies within the esophagus. The proximal one starts at 25 cm from the lips and extends to 30 cm. The second one starts at 38 cm from the lips and extends to 44 cm. PROCEDURES: 1. Insertion of left internal jugular PowerPort under fluoroscopic guidance. 2. Immediate surgeon interpretation of the fluoroscopic images. 3. EGD without biopsies. 4. Percutaneous endoscopic gastrostomy tube placement, 20-Swedish. SURGEON: Sanam Gutiérrez MD FILBERT GROWER: None. BLOOD LOSS: 50 cc. ANESTHESIA: General. COMPLICATIONS: None. The risks, possible complications and alternatives to procedure were explained to the patient. He elects to proceed. Initially, the consultation request mentioned placing a PowerPort, but not a feeding tube. However when the nursing home called to schedule procedure, the appointment scheduler asked that a PEG tube be placed at the same time. I contacted Dr. Plummer today and she stated that indeed they did want a feeding tube placed as well as a PowerPort and one of both those placed today. I went back and talked to the inmate. He was resistant to have the feeding tube placed. I told him that due to the fact that he has dysphagia and that there will likely be swelling during the radiation process, he likely will develop esophageal obstruction, which would require an open procedure to place a gastrostomy tube. The patient reconsidered and has elected to proceed with an EGD and PEG tube placement in addition to placement of the PowerPort. The risks, possible complications and alternatives to procedure were explained to the patient. He elects to proceed. The discussion specifically included, but was not limited to, bleeding or requiring emergency reoperation, infection, great vessel injury, pneumothorax, OPERATIVE REPORT [id number] PIO PARKER bleeding, which would be the most common complication in his case as he has had bleeding from the tumor in the past and he is on Plavix. OPERATIVE COURSE: The patient was conveyed to the operating room electively on 02/11/2018. General anesthesia was induced by the anesthesia staff. The neck and left chest were sterilely prepped and draped. Under ultrasonographic guidance, I percutaneously accessed the left internal jugular vein in an antegrade fashion. A guidewire was passed easily. No radiologist was present for this procedure. Static fluoroscopic images were obtained and are kept in the PACS system. The surgeon interpretation of these radiographic images is dictated within the body of this operative note. Under fluoroscopy, the guidewire could be seen coursing down the right side of the mediastinum. A skin lillie was accomplished around the wire. An incision was accomplished in the left superior infraclavicular anterior chest. Sharp dissection was carried down to the level of pectoralis fascia. A subcutaneous pocket was created in a caudad direction. I tunneled the catheter of the PowerPort from the chest incision to the neck incision. I then measured the catheter length. I shortened it. Over the guidewire, I placed a dilator sheath and this was witnessed under fluoroscopy. A dilator and wire were removed. Through the sheath, the tip of the catheter was advanced. The Peel-Away sheath was then removed. I then sutured the PowerPort, the underlying pectoralis fascia with 3-point fixation utilizing 3-0 Prolenes. The port pocket was closed with interrupted 3-0 Vicryls for the deep dermis as well as a running intracuticular 3-0 Vicryl for the skin. The neck incision was closed with a single intracuticular 3-0 Vicryl. An image was obtained over the mediastinum. It revealed that the tip of the PowerPort catheter was at the cavoatrial junction. There was no apparent kinking or twisting of the PowerPort. Another image was obtained over the left lung apex and there was no radiographic evidence of complication. I then percutaneously accessed the port. It accessed easily. It aspirated blood and flushed easily as well. I then flushed it with the appropriate amount of concentrated heparin. Sterile dressings were then applied. A bite block was then inserted. The abdomen was sterilely prepped and draped. Through the biteblock, I advanced the gastroscope. I identified 2 tumors and they are listed above. The distal tumor is almost nearly obstructing. I advanced into the stomach and then into the duodenum. I then withdrew. No biopsies were obtained. Retroflexed and angulus views were obtained. I indented the anterior abdominal wall skin. I visualized this endoscopically. An incision was accomplished in the left upper quadrant. Through the incision, I advanced an Angiocath. I punctured the fundus of the stomach. I advanced the guidewire. This was grasped with an endoscopic snare and was withdrawn out through the mouth. The wire was attached to a pull-type of gastrostomy tube, which was then pulled into place. It was shortened. Hub and flange devices were attached. I then re-endoscoped the patient's esophagus and stomach. There had been no OPERATIVE REPORT [id number] [employer] evidence of false passage or perforation. As the G-tube had passed by the distal most tumor, it had caused some bleeding. I aspirated blood and irrigated. I then injected epinephrine topically over the tumor to induce some vasoconstriction and hopefully stop any bleeding that had occurred. The endoscope was then withdrawn under direct vision. The patient was then extubated and conveyed to post-anesthesia care unit where he was in stable condition. He will be dismissed back to the nursing home. The PowerPort can be utilized immediately for chemotherapy, blood draws or infusion of medications. The G-tube can be utilized tomorrow for medications as well as for tube feeding infusions. There is no need for the patient to see me in the office and followup unless he has a complication related to this operative procedure. I will be rounding out at the nursing home and the patient can see me there if there are any problems with the procedure. TRANSINT:[id number] Voice Confirmation ID: [id number] DOCUMENT ID: [id number] SANAM GUTIÉRREZ MD at 2855 CC: LIBERTAD CHILDS MD, TOPHER FULTON MD, PHAM HARDY MD, [id number] ADIN BLEDSOE MD and SUSANA PLUMMER DICTATION DATE: 02/11/18 1624 [facility]: 02/11/[address] [facility] 02/11/[address] [facility] [address] [place] [address]
[2018-02-11] MEDS ORDERED: BUSPIRONE HCL30 MG PO (10:28)
[2018-02-11 10:46] VITALS: BP 126/72; Ht 190.5 cm; Wt 73.5 kg
[2018-02-11 12:45] LABS: BASOPHILS 0.5 % (0-2); EOSINOPHILS 3.4 % (0-7); HEMATOCRIT 30.3 % (42.0-54.0); HEMOGLOBIN 9.8 g/dL (13.5-17.5); IMMATURE GRANULOCYTES 0.2 % (0-5); LYMPHOCYTES 22.6 % (15-50); MCH 28.2 pg (26.0-34.0); MCHC 32.3 g/dL (31.0-37.0); MCV 87.3 fL (80.0-100.0); MONOCYTES 11.8 % (2-11); NEUTROPHILS 61.5 % (40-80); PLATELET COUNT 216 10x3/uL (130-400); RBC 3.47 10x6/uL (4.20-6.10); RDW 13.9 % (11.5-14.5); WBC 5.6 10x3/uL (4.8-10.8)
[2018-02-11 12:58] LABS: CALC OSMOLALITY 268 mosm/kg (275-300); CARBON DIOXIDE 24.9 mmol/L (21.0-32.0); CHLORIDE - SERUM 104 mmol/L (98-107); CREATININE - SERUM 0.6 mg/dL (0.6-1.3); GLUCOSE 103 mg/dL (74-106); POTASSIUM - SERUM 4.2 mmol/L (3.5-5.1); SODIUM 135 mmol/L (136-145); UREA NITROGEN 11 mg/dL (7-18); eGFR NON AFRICAN AMERICAN > 90 mL/min (90-120)
== END 2018-02-11 18:10 | disposition home or self-care (01) ==
LOC: D.OPS 05:15
PROVIDERS: Anesthesiology
DX: C15.4 Malignant neoplasm of middle third of esophagus (principal); C16.0 Malignant neoplasm of cardia; R13.10 Dysphagia, unspecified; Z79.02 Long term (current) use of antithrombotics/antiplatelets; Z79.899 Other long term (current) drug therapy; Z01.812 Encounter for preprocedural laboratory examination